=== PATIENT | male | born 1955 | race American Indian/Alaskan Native ===

== ENCOUNTER 2017-01-25 18:53 | Inpatient (IN) ==
[2017-01-25] MEDS ORDERED: ONDANSETRON 4 MG/2 ML VIAL IV STA (19:23)
[2017-01-25] MEDS ORDERED: PANTOPRAZOLE 40 MG VIAL IV STA (19:23)
[2017-01-25] MEDS ORDERED: ALUM/MAG/SIMETH/LIDO VISC 1:1 30 ML BOTTLE PO STA (19:23)
--- NOTE | 2017-01-25 19:25 | Emergency Department Note ---
Richie Fallon Brittany, am scribing for, and in the presence of, Bogdan Echols MD 19:25. Kinza Fallon Charles R, MD, personally performed the services described in this documentation, ascribed by Gissel Quiroz in my presence, and it is both accurate and complete . Arrival - Arrival Chief Complaint: Abdominal / Flank Pain Stated Complaint: abd distention ED Nursing Triage Note: Pt arrives via ems from home with complaints of abd distention and pain that started today. PT is scheduled to have hepatic shunt placed with Dr. Abdi whenever he gets ready (per patient). He also is shceduled to have dialysis shunt placed with Dr. Aguero soon. Pt states that he was having more abd distention and decreased appetite today and decided to come on in. Describes pressure to right side of abd. Last normal bm today prior to arrival. Mode of Arrival: Stretcher Limitations: No Limitations Source: Patient, RN Notes Reviewed - History of Present Illness HPI Narrative: Patient is a 61 y/o [place] male presenting to the ED via EMS with c/o abdominal pain that began earlier today. Patient describes this pain as a pressure, most severe in the RUQ. He reports having some associated abdominal distention, nausea, vomiting, and shortness of breath. 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 Patient reports that he is to have a Hepatic Shunt placed per Dr. Abdi and is to have a Dialysis Shunt placed per Dr. Aguero soon. He denies having started Dialysis yet. He states that he has not been told of what has contributed to his Renal Failure. Patient states that he has been told that he has Gallbladder problems in the past. PMHx of HTN, IDDM, TIA, CVA, and Barnett's Palsy. Patient does not verbalize any further complaints. Onset (ago): hour(s) Consistency: constant Allergies/Adverse Reactions: Allergies Allergy/AdvReac Type Severity Reaction Status Date / Time hydrocodone Allergy HIVES Verified 09/30/15 14:52 Sulfa (Sulfonamide Allergy HIVES Verified 09/30/15 14:52 Antibiotics) Home Medications: Home Medications Medication Instructions Recorded Confirmed Type Aspirin/Caffeine [Aliyah Back & 1 each PO BID 12/18/16 12/18/16 History Body Caplet] Metoprolol Succinate 100 mg PO BID 12/18/16 12/18/16 History Furosemide Tab [Lasix Tab] 240 mg PO BID DIURETIC #180 tablet 12/28/16 Rx Sodium Bicarb Tab 1,300 mg PO TID #180 tablet 12/28/16 Rx amLODIPine [Norvasc] 5 mg PO DAILY #30 tablet 12/28/16 Rx hydrALAZINE TAB [Apresoline Tab] 50 mg PO QID #120 tablet 12/28/16 Rx metOLazone [Metolazone] 10 mg PO DAILY #30 tablet 12/28/16 Rx Review of System - Review of System 12 point system: reviewed and no additional remarkable complaints except as stated - Review of System Constitutional: Absent: chills, fever Respiratory: Present: respiratory distress Cardiovascular: Absent: chest pain Gastrointestinal: Present: abdominal pain, nausea, vomiting, other (decrease in appetite, abdominal distention, abdominal pressure) Genitourinary male: Absent: urgency, dysuria, frequency Medical,Surgical,& Family Hx - Medical History Cardio: History of: Hypertension (Says he has had for the last 5 years) Neurology: History of: Cerebrovascular Accident (2015 & 2013), TIA (2013) HEENT: History of: Eye Problem (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) Endocrine: History of: Diabetes Mellitus (IDDM), Diabetes Mellitus (NIDDM) Respiratory: No history of: Asthma, COPD Renal: No history of: Renal Failure Gastrointestinal: History of: Hepatitis (Had in his teenage years) - Surgical History Thoracic Surgeries: Patient denies;: Organ Transplant, Lobectomy HEENT Surgeries: Surgical HX of: Tonsilectomy & Adenoidectomy (In the s) Abdominal Surgeries: Surgical HX of: Colonoscopy (In 2009) Reproductive Surgeries: Patient denies;: Vasectomy Orthopedic Surgeries: Surgical HX of;: Orthopedic Surgery (b/l knee surgery in the s) - Family History Family History: Reports;: Family Diabetes (Brothers), Family Hypertension ( Brothers) Denies;: Family Anesthesia Reaction, Family Cancer, Family Heart Disease, Family Psychiatric Problems, Family Stroke - Social History Smoking Status: Former smoker Frequency of Alcohol Use: None Type of Drug Use: None Exam Vital Signs: Vital Signs Temperature 97.6 F 01/25/17 18:53 Pulse Rate 66 01/25/17 18:53 Respiratory Rate 20 01/25/17 18:53 Blood Pressure 121/65 01/25/17 18:53 O2 Sat by Pulse Oximetry 99 01/25/17 18:53 - General General appearance: alert, in no apparent distress, other (Stron uremic smell) - Head Head exam: Present: atraumatic, normocephalic - Eye Eye exam: Present: PERRL, EOMI - ENT ENT exam: Present: normal oropharynx, mucous membranes moist - Neck Neck exam: Present: normal inspection, full ROM, trachea midline - Chest Chest inspection: Present: normal inspection, symmetric chest wall rise - Respiratory Respiratory exam: Present: rales (Bilateral rales). Absent: normal lung sounds bilaterally - Cardiovascular Cardiovascular exam: Present: regular rate, normal rhythm, normal heart sounds - Abdominal Exam Abdominal exam: Present: soft, tenderness (RUQ tenderness to direct palpation, diffuse abdominal tenderness), hypoactive bowel sounds. Absent: guarding, rebound, normal bowel sounds - Extremities Exam Extremities exam: Present: normal capillary refill, pedal edema (+1 edema to bilateral lower extremities). Absent: calf tenderness - Back Exam Back exam: Present: normal inspection - Neurological Exam Neurological exam: Present: alert, oriented X3, CN II-XII intact. Absent: motor sensory deficit - Psychiatric Psychiatric exam: Present: normal affect, normal mood - Skin Skin exam: Present: warm, dry, intact, normal color Course - Consultations Consultation #1: Hospitalist will admit patient Time: 22:21 Results - Labs CBC & BMP: 01/25/17 19:19 01/25/17 19:19 Lab Results: I have reviewed the patients labs Labs: Laboratory Tests 01/25/17 19:19 WBC 6.6 RBC 3.09 L Hgb 9.6 L Hct 27.9 L Plt Count 399 Neut % (Auto) 75.7 H Lymph % (Auto) 15.5 L Baso % (Auto) 1.2 H Lymph # (Auto) 1.0 L Laboratory Tests 01/25/17 19:19 Lactic Acid < 0.3 L Laboratory Tests 01/25/17 19:19 Sodium 138 Potassium 3.4 L Chloride 90 L Carbon Dioxide 28 Anion Gap 23.4 H BUN 190 H Creatinine 14.70 H Glucose 143 H Calculated Osmolality 339.7 H Calcium 5.3 L* Magnesium 2.6 H ALT 13 L Troponin I < 0.015 Total Protein 6.3 L Albumin 2.8 L Albumin/Globulin Ratio 0.8 L Laboratory Tests 01/25/17 20:54 Urine Color Yellow Urine Appearance Cloudy Urine pH 5.0 Ur Specific Op[place]ke 1.009 Urine Protein 100 Urine Glucose (UA) Negative Urine Ketones Negative Urine Blood Small Urine Nitrate Negative Urine Bilirubin Negative Urine Urobilinogen < 2.0 H Urine Leukocytes Large H Urine RBC 14 Urine WBC 291 Urine WBC Clumps Moderate Urine Bacteria Many Urine Mucus Occasional Laboratory Tests 01/25/17 19:19 B-Natriuretic Peptide 922 H - Diagnostic Findings Procedure: Abdominal x-ray: report reviewed by me (Calcification over the right renal outline, could indicate nephrolithiasis.), Chest x-ray: report reviewed by me (Stable cardiomegaly. Interval improvement in the right base, but pleural thickening and mild atelectasis or scarring remains.) Disposition Clinical Impression: Abdominal pain, Lower extremity edema, Acute on chronic renal failure, UTI ( urinary tract infection), Biliary colic, Pleural effusion, Hypocalcemia, Anemia of chronic disease, CHF (congestive heart failure) Case discussed with: patient Disposition: Still a Patient Condition: Stable Time of Disposition: 22:22
[2017-01-25 19:46] LABS: Basophils # 0.1 10*3/uL (0.0-0.2); Basophils % 1.2 % (0.0-0.8); Eosinophils # 0.1 10*3/uL (0.0-0.87); Eosinophils % 1.4 % (0.00-10.9); Hematocrit 27.9 VOL% (42.0-52.0); Hemoglobin 9.6 GM/DL (14.0-18.0); Immature Granulocytes % 0.9 %; Immature Granulocytes Absolute 0.06 #; Lymphocytes % 15.5 % (21.2-54.2); Mean Corpuscular HGB Conc 34.4 GM/DL (32-36); Mean Corpuscular Hemoglobin 31 PG (27-34); Mean Corpuscular Volume 90.3 FL (87-102); Monocytes # 0.4 10*3/uL (0.11-0.8); Monocytes % 5.3 % (1.7-12.7); Neutrophils % 75.7 % (38.7-73.9); Platelet Count 399 T/CUMM (130-400); Red Blood Count 3.09 MC/CUMM (3.8-5.5); Red Cell Distribution Width 12.5 % (9.3-17.3); White Blood Count 6.6 T/CUMM (4-12)
--- NOTE | 2017-01-25 20:01 | EKG Report ---
Stationary ECG Study [facility] ER Test Date: 01/25/2017 8:00:38 PM Pat Name: CIARA REYES Department: Room: 426 Gender: M Delivery Man: : 1955 Requested by: Bogdan Hobson Order Number: [id number] Jonah MD: SANTI HARRIS Intervals Isabella Rate: 61 P: 81 OH: 168 QRS: -10 QRSD: 131 T: 154 QT: 460 QTc: 462 Interpretive Statements SINUS RHYTHM INTRAVENTRICULAR CONDUCTION DELAY Electronically Signed On 01-26-17 11:20:55 CDT by SANTI HARRIS [email or web address]
--- NOTE | 2017-01-25 20:03 | XRay Report ---
Portable chest. Indication: Generalized and upper abdominal pain. Comparison: December 20, 2016. The heart is enlarged with left ventricular hypertrophy. The pulmonary vasculature is normal. There is a calcified granuloma in the left upper lung field. The left lung is otherwise clear. There is interval improvement in the appearance of the right lung. Mild scarring or atelectasis persists laterally, and there is persistent pleural thickening. Impression: Stable cardiomegaly. Interval improvement in the right base, but pleural thickening and mild atelectasis or scarring remains. PROCEDURE INTERPRETED AT [facility] DEPARTMENT OF RADIOLOGY Final Report Signed by: Dr. Jessica Morin
--- NOTE | 2017-01-25 20:04 | XRay Report ---
Abdomen flat and erect. Indication: Generalized abdominal pain. Comparison: December 30, 2007. The heart is enlarged. No enlargement of the liver or spleen is seen. There is a 2 mm calcification projecting over the midpole of the right kidney. Mild vascular calcifications within the pelvis. Very little bowel gas, but the pattern is within the range of normal. No free air. Impression: Calcification over the right renal outline, could indicate nephrolithiasis. PROCEDURE INTERPRETED AT [facility] DEPARTMENT OF RADIOLOGY Final Report Signed by: Dr. Jessica Morin
[2017-01-25 20:06] LABS: Lactic Acid < 0.3 MMOL/L (0.4-2.0)
[2017-01-25 20:17] LABS: Alanine Aminotransferase 13 U/L (16-61); Albumin 2.8 G/DL (3.4-5.0); Alkaline Phosphatase 75 U/L (45-117); Amylase 60 U/L (25-115); Aspartate Amino Transferase 13 U/L (0-37); Blood Urea Nitrogen 190 MG/DL (7-18); Glucose 143 MG/DL (74-106); Magnesium 2.6 MG/DL (1.8-2.4); Osmolality,Calculated 339.7 MOS/KG (273-304); Potassium 3.4 MMOL/L (3.5-5.1); Sodium 138 MMOL/L (136-145); Total Protein 6.3 G/DL (6.4-8.3); Troponin I Only < 0.015 NG/ML (0.00-0.045)
[2017-01-25] MEDS ORDERED: PANTOPRAZOLE 40 MG VIAL IV ONE (20:19)
[2017-01-25] MEDS ORDERED: ALUM/MAG/SIMETH/LIDO VISC 1:1 30 ML BOTTLE PO ONE (20:19)
[2017-01-25] MEDS ORDERED: ONDANSETRON 4 MG/2 ML VIAL ONE (20:19)
[2017-01-25 20:26] LABS: Calcium 5.3 MG/DL (8.5-10.1)
[2017-01-25 21:05] LABS: Apearance,Urine CLOUDY (Clear); Bacteria,Urine Many /HPF (Few); Bilirubin,Urine Negative (Negative); Blood, Urine Small mg/dL (Negative); Glucose,Urine (UA) Negative (Negative); Ketones,Urine Negative (Negative); Mucus,Urine Occasional /LPF (Occasional); Nitrite,Urine Negative (Negative); Protein,Urine 100 MG/DL; RBC,Urine 14 /HPF (0-4); Urine Color Yellow (Yellow); Urine Specific Gravity 1.009 (1.001-1.035); Urine Urobilinogen < 2.0 EU/DL (0.2-1.0); WBC,Urine 291 /HPF (0-6)
[2017-01-25] MEDS ORDERED: CALCIUM GLUCONATE 1,000 MG in SODIUM CHLORIDE 0.9% 100 ML IV ONE (21:05)
[2017-01-25] MEDS ORDERED: cefTRIAXone 1,000 MG in SODIUM CHLORIDE 0.9% 100 ML IV STA (21:36)
[2017-01-25] MEDS ORDERED: SODIUM CHLORIDE 0.9% 100 ML IV ONE (21:48)
[2017-01-25] MEDS ORDERED: cefTRIAXone 1,000 MG VIAL ONE (21:48)
--- NOTE | 2017-01-25 23:36 | Hospitalist History & Physical ---
Assessment and Plan (1) Uremia Status: Acute Assessment and plan: The patient presents to the hospital with acute on chronic uremia secondary to chronic kidney disease stage V. The patient will be admitted to the hospital and will continue his usual home regimen. His blood pressure is better controlled than usual. 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 Current Visit: Yes (2) CKD (chronic kidney disease) stage 5, GFR less than 15 ml/min Status: Acute Current Visit: Yes (3) Acute on chronic renal failure Status: Acute Current Visit: Yes History of Present Illness Chief complaint: Nausea and abdominal discomfort History of present illness: Mr. Swanson is a 61 year old male with history of end-stage renal disease. The patient was recently discharged from hospital in mid December with stage V chronic renal failure. The patient was set up for access placement with Dr. Augero. The patient now presents to the hospital with worsening nausea and abdominal discomfort with weakness. The patient denies fever, chills, angina, palpitations. The patient has mild shortness of breath. The patient's symptoms are moderate, continuous, and worsening. The patient's symptoms prevent him from eating appropriate amounts of food. The patient feels the need to void but has small urine output. A complete 10 system review is obtained all systems not mentioned in history of present illness were negative. Home Medications Medication Instructions Recorded Confirmed Type Aspirin/Caffeine [Aliyah Back & 1 each PO BID 12/18/16 12/18/16 History Body Caplet] Metoprolol Succinate 100 mg PO BID 12/18/16 12/18/16 History Furosemide Tab [Lasix Tab] 240 mg PO BID DIURETIC #180 tablet 12/28/16 Rx Sodium Bicarb Tab 1,300 mg PO TID #180 tablet 12/28/16 Rx amLODIPine [Norvasc] 5 mg PO DAILY #30 tablet 12/28/16 Rx hydrALAZINE TAB [Apresoline Tab] 50 mg PO QID #120 tablet 12/28/16 Rx metOLazone [Metolazone] 10 mg PO DAILY #30 tablet 12/28/16 Rx Allergies Allergy/AdvReac Type Severity Reaction Status Date / Time hydrocodone Allergy HIVES Verified 09/30/15 14:52 Sulfa (Sulfonamide Allergy HIVES Verified 09/30/15 14:52 Antibiotics) Medical,Surgical,& Family Hx - Medical History Cardio: History of: Hypertension (Says he has had for the last 5 years) Neurology: History of: Cerebrovascular Accident (2015 & 2013), TIA (2013) HEENT: History of: Eye Problem (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) Endocrine: History of: Diabetes Mellitus (IDDM), Diabetes Mellitus (NIDDM) Respiratory: No history of: Asthma, COPD Renal: No history of: Renal Failure Gastrointestinal: History of: Hepatitis (Had in his teenage years) - Surgical History Thoracic Surgeries: Patient denies;: Organ Transplant, Lobectomy HEENT Surgeries: Surgical HX of: Tonsilectomy & Adenoidectomy (In the s) Abdominal Surgeries: Surgical HX of: Colonoscopy (In 2009) Reproductive Surgeries: Patient denies;: Vasectomy Orthopedic Surgeries: Surgical HX of;: Orthopedic Surgery (b/l knee surgery in the ) - Family History Family History: Reports;: Family Diabetes (Brothers), Family Hypertension ( Brothers) Denies;: Family Anesthesia Reaction, Family Cancer, Family Heart Disease, Family Psychiatric Problems, Family Stroke - Social History Smoking Status: Former smoker Frequency of Alcohol Use: None Type of Drug Use: None 12 point system: reviewed and no additional remarkable complaints except as stated Exam - Constitutional Vitals: Period Temp Pulse Resp BP Sys/Canales Pulse Ox Last 24 Hr 97.6 F-97.6 F 66-66 20-20 121-121/65-65 99 Exam: Constitutional System: Mild distress. No tremulousness. Patient nauseated Head: Normocephalic, atraumatic. Ears, Nose and Throat System: No evidence of Otitis or Mastoiditis. No epistaxis or discharge Eyes System: Pupils equal, round, and reactive. Extraocular muscles intact. Neck: Supple, without adenopathy, No jugular venous distention. No thyromegaly , neck mass, or prior surgery apparent. Respiratory System: Chest clear to auscultation. Cardiovascular System: Heart with regular rate and rhythm. No murmur. GI System: Abdomen soft, nontender. Hypo-active bowel sounds present. Musculoskeletal System: limbs with 1+ pedal edema. Full distal pulses. Neurological System: No discernable sensory deficit. No aphasia Psychiatric System: Conversation is confused Results - Labs CBC & BMP: 01/25/17 19:19 01/25/17 19:19 Lab Results: I have reviewed the past 24 hour labs
[2017-01-25] MEDS ORDERED: ONDANSETRON 4 MG/2 ML VIAL IV PRN (23:40)
[2017-01-25] MEDS ORDERED: traMADol 50 MG TABLET PO PRN (23:42)
[2017-01-26 06:27] LABS: Basophils # 0.1 10*3/uL (0.0-0.2); Basophils % 0.6 % (0.0-0.8); Eosinophils # 0.2 10*3/uL (0.0-0.87); Hematocrit 28.3 VOL% (42.0-52.0); Hemoglobin 9.6 GM/DL (14.0-18.0); Immature Granulocytes Absolute 0.09 #; Mean Corpuscular HGB Conc 33.9 GM/DL (32-36); Mean Corpuscular Hemoglobin 31 PG (27-34); Mean Corpuscular Volume 89.8 FL (87-102); Mean Platelet Volume 11.3 FL (9.6-12.0); Monocytes # 0.9 10*3/uL (0.11-0.8); Monocytes % 9.8 % (1.7-12.7); Neutrophils # 6.4 10*3/uL (1.4-7.4); Neutrophils % 74.6 % (38.7-73.9); Platelet Count 400 T/CUMM (130-400); Red Blood Count 3.15 MC/CUMM (3.8-5.5); Red Cell Distribution Width 12.5 % (9.3-17.3); White Blood Count 8.6 T/CUMM (4-12)
[2017-01-26 06:57] LABS: Magnesium 2.6 MG/DL (1.8-2.4); Osmolality,Calculated 341.4 MOS/KG (273-304); Potassium 3.3 MMOL/L (3.5-5.1); Troponin I Only 0.016 NG/ML (0.00-0.045)
[2017-01-26 07:06] LABS: Calcium 5.6 MG/DL (8.5-10.1)
--- NOTE | 2017-01-26 07:56 | Ultrasound Report ---
Gallbladder ultrasound. Indication: Right upper quadrant pain. No prior studies. There is a preliminary report from [facility]. The liver is normal in size and parenchymal echogenicity. No focal liver lesions are identified. There is no intrahepatic biliary ductal dilatation. The gallbladder is distended. There is borderline gallbladder wall thickening at 3 mm. Multiple polyps are seen within the gallbladder the largest of which measures 5 mm. A single gallstone is noted. The common duct measures 4 mm. There is a 5 x 8 mm cyst at the neck of the pancreas. The pancreas is otherwise unremarkable. The right kidney has a normal appearance. Incidental note is made of a right-sided pleural effusion. Impression: 1. Cholelithiasis, gallbladder distention, and borderline gallbladder wall thickening indicating the possibility of cholecystitis. There are also multiple gallbladder polyps present, which are 5 mm or less in size. 2. Small simple appearing cyst within the pancreas. Attention on follow-up recommended. 3. Right pleural effusion. The Ultrasound images were captured and stored. PROCEDURE INTERPRETED AT [facility] DEPARTMENT OF RADIOLOGY Final Report Signed by: Dr. Jessica Morin
[2017-01-26] MEDS ORDERED: FUROSEMIDE 80 MG TABLET PO SCH (08:00)
--- NOTE | 2017-01-26 08:37 | Nephrology Consult Note ---
History of Present Illness Chief complaint: uremia History of present illness: Mr. Swanson is a 61 year old male known to me with symptomatic uremia we have discussed in clinic the fact that he needed to start dialysis and he had been delaying it. He presented with increased sleepiness and nausea and vomiting. His BUNs 188 creatinines 14 potassium 3.3. He has been diuresed out of his anasarca does state but at this point needs to begin dialysis. He has 1+ peripheral edema clear chest and her heart without rub or gallop. He is also been found to have asymptomatic cholelithiasis confirmed by ultrasound. His chest x-ray demonstrates no evidence of volume overload. Impression symptomatic uremia #2 asymptomatic cholelithiasis Plan we have asked to see the patient and he will place a tunneled dialysis catheter will begin dialysis. This was discussed with the patient he understands and agrees Home Medications Medication Instructions Recorded Confirmed Type Aspirin/Caffeine [Aliyah Back & 1 each PO BID 12/18/16 01/26/17 History Body Caplet] Metoprolol Succinate 100 mg PO BID 12/18/16 01/26/17 History Furosemide Tab [Lasix Tab] 240 mg PO BID DIURETIC #180 tablet 12/28/16 01/26/17 Rx amLODIPine [Norvasc] 5 mg PO DAILY #30 tablet 12/28/16 01/26/17 Rx hydrALAZINE TAB [Apresoline Tab] 50 mg PO QID #120 tablet 12/28/16 Rx metOLazone [Metolazone] 10 mg PO DAILY #30 tablet 12/28/16 01/26/17 Rx Allergies Allergy/AdvReac Type Severity Reaction Status Date / Time hydrocodone Allergy HIVES Verified 09/30/15 14:52 Sulfa (Sulfonamide Allergy HIVES Verified 09/30/15 14:52 Antibiotics) Medical,Surgical,& Family Hx - Medical History Cardio: History of: Hypertension (Says he has had for the last 5 years) Neurology: History of: Cerebrovascular Accident (2015 & 2013), TIA (2013) HEENT: History of: Eye Problem (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) Endocrine: History of: Diabetes Mellitus (IDDM), Diabetes Mellitus (NIDDM) Respiratory: No history of: Asthma, COPD Renal: No history of: Renal Failure Gastrointestinal: History of: Hepatitis (Had in his teenage years) Hematology: History of: Anemia - Surgical History Thoracic Surgeries: Patient denies;: Organ Transplant, Lobectomy HEENT Surgeries: Surgical HX of: Tonsilectomy & Adenoidectomy (In the s) Abdominal Surgeries: Surgical HX of: Colonoscopy (In 2009) Reproductive Surgeries: Patient denies;: Vasectomy Orthopedic Surgeries: Surgical HX of;: Orthopedic Surgery (b/l knee surgery in the ) - Family History Family History: Reports;: Family Diabetes (Brothers), Family Hypertension ( Brothers) Denies;: Family Anesthesia Reaction, Family Cancer, Family Heart Disease, Family Psychiatric Problems, Family Stroke - Social History Smoking Status: Former smoker Frequency of Alcohol Use: None Type of Drug Use: None Exam - Vital Signs Vital signs: Period Temp Pulse Resp BP Sys/Canales Pulse Ox Last 24 Hr 97.5 F-98.3 F 66-73 18-20 121-171/65-84 95-99 Results - Labs CBC & BMP: 01/26/17 05:11 01/26/17 05:11
[2017-01-26] MEDS ORDERED: HEPARIN 5,000 UNIT/1 ML VIAL ONE (08:45)
[2017-01-26] MEDS ORDERED: TISSUE ADHESIVE 1 EACH APPLICATOR TOP ONE (08:45)
[2017-01-26] MEDS: METOPROLOL SUCCINATE XL 100 MG TABLET PO SCH ×2 (08:55→20:50)
[2017-01-26] MEDS: PANTOPRAZOLE 40 MG TABLET PO SCH (08:59)
[2017-01-26] MEDS: ENOXAPARIN 30 MG/0.3 ML SYRINGE SUBCUT SCH (08:59)
[2017-01-26] MEDS: amLODIPine 5 MG TABLET PO SCH (08:59)
[2017-01-26] MEDS: metOLazone 5 MG TABLET PO SCH (08:59)
[2017-01-26] MEDS ORDERED: metOLazone 5 MG TABLET PO SCH (09:00)
[2017-01-26] MEDS ORDERED: SODIUM BICARBONATE 650 MG TABLET PO SCH (09:00)
[2017-01-26] MEDS ORDERED: CLINDAMYCIN INJ 900 MG in PREMIX 1 EACH IV ONE ×2 (09:33→11:30)
--- NOTE | 2017-01-26 09:50 | General Surgery Consult Note ---
Assessment and Plan (1) Uremia Status: Acute Assessment and plan: This patient is admitted with chronic renal failure with need for hemodialysis initiation. I have been consulted for dialysis catheter placement. I have discussed this procedure with the patient in detail in the past at a prior admission when he refused catheter placement. He is aware of the risks, benefits, and alternatives, and the expected outcomes. He is wondering a little bit about fistula creation but I told him that right now we just need to get a catheter in so that he can dialyze and become more medically stable prior to fistula. He understands this and would like to proceed. We will schedule surgery for later today. Current Visit: Yes History of Present Illness Chief complaint: Uremia with nausea and History of present illness: Mr. Swanson is a 61 year old male who is admitted with uremic symptoms and need for dialysis initiation. I have seen him in the office and he has refused fistula creation in the past. Home Medications Medication Instructions Recorded Confirmed Type Aspirin/Caffeine [Aliyah Back & 1 each PO BID 12/18/16 01/26/17 History Body Caplet] Metoprolol Succinate 100 mg PO BID 12/18/16 01/26/17 History Furosemide Tab [Lasix Tab] 240 mg PO BID DIURETIC #180 tablet 12/28/16 01/26/17 Rx amLODIPine [Norvasc] 5 mg PO DAILY #30 tablet 12/28/16 01/26/17 Rx hydrALAZINE TAB [Apresoline Tab] 50 mg PO QID #120 tablet 12/28/16 Rx metOLazone [Metolazone] 10 mg PO DAILY #30 tablet 12/28/16 01/26/17 Rx Allergies Allergy/AdvReac Type Severity Reaction Status Date / Time hydrocodone Allergy HIVES Verified 09/30/15 14:52 Sulfa (Sulfonamide Allergy HIVES Verified 09/30/15 14:52 Antibiotics) Medical,Surgical,& Family Hx - Medical History Cardio: History of: Hypertension (Says he has had for the last 5 years) Neurology: History of: Cerebrovascular Accident (2015 & 2013), TIA (2013) HEENT: History of: Eye Problem (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) Endocrine: History of: Diabetes Mellitus (IDDM), Diabetes Mellitus (NIDDM) Respiratory: No history of: Asthma, COPD Renal: No history of: Renal Failure Gastrointestinal: History of: Hepatitis (Had in his teenage years) Hematology: History of: Anemia - Surgical History Thoracic Surgeries: Patient denies;: Organ Transplant, Lobectomy HEENT Surgeries: Surgical HX of: Tonsilectomy & Adenoidectomy (In the s) Abdominal Surgeries: Surgical HX of: Colonoscopy (In 2009) Reproductive Surgeries: Patient denies;: Vasectomy Orthopedic Surgeries: Surgical HX of;: Orthopedic Surgery (b/l knee surgery in the ) - Family History Family History: Reports;: Family Diabetes (Brothers), Family Hypertension ( Brothers) Denies;: Family Anesthesia Reaction, Family Cancer, Family Heart Disease, Family Psychiatric Problems, Family Stroke - Social History Smoking Status: Former smoker Frequency of Alcohol Use: None Type of Drug Use: None - Constitutional Constitutional: Present: as per HPI - EENT Nose, mouth and throat: Present: as per HPI - Cardiovascular Cardiovascular: Present: as per HPI - Respiratory Respiratory: Present: as per HPI - Gastrointestinal Gastrointestinal: Present: as per HPI - Genitourinary Genitourinary: Present: as per HPI - Musculoskeletal Musculoskeletal: Present: as per HPI - Neurological Neurological: Present: as per HPI - Endocrine Endocrine: Present: as per HPI Hematologic/Lymphatic: Present: as per HPI Exam - Constitutional Vitals: Period Temp Pulse Resp BP Sys/Canales Pulse Ox Last 24 Hr 97.5 F-98.3 F 65-73 18-20 121-171/65-84 95-99 General appearance: no acute distress, over weight - Head Head exam: Present: normal inspection - Eye Eye exam: Present: EOMI - ENT ENT exam: Present: normal exam Mouth exam: Present: normal external inspection, normal voice - Neck Neck exam: Present: normal inspection, trachea midline - Respiratory Respiratory exam: Absent: accessory muscle use, chest wall tenderness - Cardiovascular Cardiovascular exam: Absent: tachycardia - GI/Abdominal GI/Abdominal exam: Absent: distended - Extremities Exam Extremities exam: Present: normal inspection - Neurological Exam Neurological exam: Present: alert Speech: Present: normal - Skin Skin exam: Present: normal color, warm Results - Labs CBC & BMP: 01/26/17 05:11 01/26/17 05:11
[2017-01-26] MEDS: ASPIRIN PO SCH (10:52)
[2017-01-26] MEDS: CAFFEINE PO SCH (10:52)
[2017-01-26] MEDS ORDERED: KETOROLAC 30 MG/1 ML VIAL ONE (11:40)
[2017-01-26] MEDS ORDERED: PROPOFOL 200 MG/20 ML VIAL IV ONE (11:40)
[2017-01-26] MEDS ORDERED: LIDOCAINE 2% 5 ML VIAL ONE (11:40)
[2017-01-26] MEDS ORDERED: PHENYLEPHRINE 1 MG/10 ML SYRINGE IV ONE (11:40)
[2017-01-26] MEDS ORDERED: ONDANSETRON 4 MG/2 ML VIAL ONE (11:40)
[2017-01-26] MEDS ORDERED: DEXAMETHASONE 10 MG/1 ML VIAL ONE (11:40)
--- NOTE | 2017-01-26 12:17 | Operative Note ---
Date of procedure: 01/26/17 Pre-op diagnosis: Renal failure with need for hemodialysis access Post-op diagnosis: same Procedure: Preoperative diagnosis Renal failure with need for hemodialysis access Postoperative diagnosis Same Procedures performed 1. Right internal jugular vein tunneled hemodialysis catheter placement 2. Ultrasound guidance and interpretation of images 3. Fluoroscopic guidance and interpretation of images Findings The right internal jugular vein is compressible and it was accessed for hemodialysis access. The tip of the catheter was place in the right atrium. Patient tolerated procedure well and both ports worked well. Complications none apparent Specimen None Indications Renal failure with need for access for hemodialysis Description of procedure The patient was taken to the operating room and transferred to the operating table in the supine position. Pressure points are padded and SCDs placed lower extremity. Monitored anesthesia was administered and the neck was prepped and draped sterile fashion using chloride same. Preoperative antibiotics were administered and a timeout was performed. Ultrasound was used to identify the internal jugular vein and local anesthetic was infiltrated around the vein. Local anesthetic was also administered around the planned tract site down to the anterior chest wall below the clavicle. The vein was accessed on first stick and nonpulsatile venous blood was obtained. A wire was placed using Seldinger technique. An incision was made alongside the wire using a long blade scalpel and a separate incision below the clavicle was made with an 11 blade scalpel. A 19 cm catheter was tunneled from the chest incision into the neck wound and a dilator peel-away sheath was placed over the wire. The wire and dilator was removed and the catheter was placed to the peel-away sheath. The catheter was secured in place in the right atrium on fluoroscopic images. Both returned blood easily and were flushed with heparin. The catheter was secured in place using 3-0 nylon sutures and the neck incision was closed with 3 -0 nylon suture. Sterile dressings were applied. The patient was awakened from anesthesia and transferred to recovery. Postoperative plan Begin hemodialysis and obtained chest x-ray postop Implants: 19 cm tunneled dialysis catheter Anesthesia: MAC, local Surgeon / Physician: Tommie Aguero Estimated blood loss: minimal Specimens: none sent Condition: stable Disposition: PACU Results - Labs CBC & BMP: 01/26/17 05:11 01/26/17 05:11 Discharge Plan - Discharge Medications No Action Aspirin/Caffeine [Aliyah Back & Body Caplet] 1 each PO BID amLODIPine [Norvasc] 5 mg PO DAILY #30 tablet hydrALAZINE TAB [Apresoline Tab] 50 mg PO QID #120 tablet metOLazone [Metolazone] 10 mg PO DAILY #30 tablet Metoprolol Succinate 100 mg PO BID Furosemide Tab [Lasix Tab] 240 mg PO BID DIURETIC #180 tablet - Follow Up or Referral - Forms/Instructions
--- NOTE | 2017-01-26 12:30 | Anesthesia Post-Op ---
Anesthesia Post OP - Post Ansesthetic Evaluation Patient seen in post op: Yes Resp: within normal limits CV: within normal limits Mental: within normal limits Temp: within normal limits [id number]: within normal limits Nausea and Vomiting: within normal limits Pain: within normal limits
[2017-01-26] MEDS ORDERED: MIDAZOLAM 2 MG/2 ML VIAL ONE (12:44)
[2017-01-26] MEDS ORDERED: fentaNYL 100 MCG/2 ML VIAL ONE (12:44)
[2017-01-26] MEDS ORDERED: SEVOFLURANE 1 UNIT/15 MINUTE INH ONE (12:44)
--- NOTE | 2017-01-26 12:52 | Interventional Radiology Rpt ---
Intraoperative fluoroscopy was provided for the primary service during CV catheter placement. Fluoroscopy time, 9.8 seconds. Two digital images were obtained with a dual-lumen catheter placement and are presumed to serve the clinical purposes. PROCEDURE INTERPRETED AT [facility] DEPARTMENT OF RADIOLOGY Final Report Signed by: Dr. Jessica Morin
--- NOTE | 2017-01-26 13:17 | Dialysis Note ---
Dialysis Note - Dialysis Note Mr. Swanson is seen during his first hemodialysis he is doing well and his catheter is working well. There is no bleeding from the exit site. Will only dialyze about 2 hours today so as not to cause disequilibrium. His next dialysis will be Saturday.
[2017-01-26 13:30] LABS: Hepatitis A Ab IgM Quant 0.16 Index; Hepatitis A Ab IgM Result Negative (Negative); Hepatitis B Core IgM Quant 0.13 Index; Hepatitis B Core IgM Result Negative (Negative); Hepatitis B Surface Ag Quant 0.18 Index; Hepatitis B Surface Ag Result Negative (Negative); Hepatitis C Virus Ab Quant 0.05 Index; Hepatitis C Virus Ab Result Negative (Negative)
[2017-01-26] MEDS ORDERED: HEPARIN 10,000 UNIT/10 ML VIAL IV PRN (13:32)
--- NOTE | 2017-01-26 13:38 | XRay Report ---
Portable chest portable chest. Indication: Dialysis catheter placement. The heart is enlarged. The distal tip of the dual-lumen catheter is at the junction of the SVC and right atrium. The pulmonary vasculature is normal. Hypoaeration changes have developed at each lung base. No pneumothorax. Stable pleural effusion. Impression: Satisfactory line placement. Development of basilar hypoaeration. PROCEDURE INTERPRETED AT [facility] DEPARTMENT OF RADIOLOGY Final Report Signed by: Dr. Jessica Morin
[2017-01-26] MEDS: CALCIUM CARBONATE CHEW 500 MG TABLET PO SCH ×2 (16:19→20:50)
[2017-01-26] MEDS: FUROSEMIDE 80 MG TABLET PO SCH (16:19)
--- NOTE | 2017-01-26 18:51 | Hospitalist Progress Note ---
Hospitalist: Subjective Interval history: Patient admitted with uremia. He underwent right IJ and dialysis today. I went to see him twice earlier today but he was out. He is back in his room, and he states that he feels better. He denies any abdominal pain, n/v,SOB or CP. He has been eating well and without any problems. He is happy that he feels better. Exam - Constitutional Vitals: Period Temp Pulse Resp BP Sys/Canales Pulse Ox Last 24 Hr 97.5 F-98.3 F 56-73 16-20 102-175/52-92 93-100 General appearance: no acute distress - Head Head exam: Present: normal inspection - Eye Eye exam: Present: EOMI Pupils: Present: LEIDA - ENT ENT exam: Present: normal oropharynx - Neck Neck exam: Present: other (Right IJ in place without any tenderness or discharge ) - Respiratory Respiratory exam: Present: clear to auscultation bilaterally. Absent: rales, rhonchi, wheezes - Cardiovascular Cardiovascular exam: Present: regular rate and rhythm - GI/Abdominal GI/Abdominal exam: Present: normal bowel sounds, soft. Absent: distended, tenderness - Extremities Exam Extremities exam: Absent: edema - Neurological Exam Neurological exam: Present: alert, oriented X3 - Psychiatric Psychiatric exam: Present: normal affect, normal mood Results - Labs CBC & BMP: 01/26/17 05:11 01/26/17 05:11 - Impressions Active Issues: 1. Uremia, resolved 2. ESRD, on HD 3. h/o HTN: blood pressure elevated even after HD; will monitor but may need increase in norvasc 4. h/o DM: sugars controlled 5. hypocalcemia, corrected 6.6 6. h/o CVA 7. Anemia, HCT stable Plan: continue current care; monitor bp and treat accordingly; correct calcium; monitor electrolytes; add ISS; check iron stores The plan of care may be modified as more information becomes available.
[2017-01-26] MEDS ORDERED: CALCIUM GLUCONATE 1,000 MG in SODIUM CHLORIDE 0.9% 100 ML IV ONE (18:59)
[2017-01-26] MEDS ORDERED: GLUCAGON 1 MG VIAL IM PRN (19:01)
[2017-01-26] MEDS ORDERED: DEXTROSE 50% 25 GM/50 ML SYRINGE IV PRN (19:01)
[2017-01-26] MEDS: INSULIN LISPRO 100 UNIT/ML SUBCUT SCH (21:41)
[2017-01-27 05:40] LABS: Basophils % 0.4 % (0.0-0.8); Hematocrit 31.6 VOL% (42.0-52.0); Hemoglobin 10.4 GM/DL (14.0-18.0); Immature Granulocytes % 1.2 %; Immature Granulocytes Absolute 0.06 #; Lymphocytes # 0.8 10*3/uL (1.4-4.0); Lymphocytes % 14.4 % (21.2-54.2); Mean Corpuscular HGB Conc 32.9 GM/DL (32-36); Mean Corpuscular Hemoglobin 30 PG (27-34); Mean Corpuscular Volume 91.6 FL (87-102); Monocytes # 0.2 10*3/uL (0.11-0.8); Neutrophils # 4.2 10*3/uL (1.4-7.4); Platelet Count 435 T/CUMM (130-400); Red Blood Count 3.45 MC/CUMM (3.8-5.5); Red Cell Distribution Width 12.6 % (9.3-17.3); White Blood Count 5.2 T/CUMM (4-12)
[2017-01-27] MEDS: ASPIRIN PO SCH ×3 (06:04→20:03)
[2017-01-27] MEDS: CAFFEINE PO SCH ×3 (06:04→20:03)
[2017-01-27 06:16] LABS: Albumin 2.9 G/DL (3.4-5.0); Bilirubin,Total 0.8 MG/DL (0.2-1.0); Calcium 6.9 MG/DL (8.5-10.1); Osmolality,Calculated 319.5 MOS/KG (273-304); Potassium 4.1 MMOL/L (3.5-5.1); Total Protein 6.7 G/DL (6.4-8.3)
[2017-01-27 06:21] LABS: % Iron Saturation 57.1 % (18-50); Ferritin 257.5 ng/ml (26-388)
[2017-01-27] MEDS: INSULIN LISPRO 100 UNIT/ML SUBCUT SCH ×4 (08:04→21:13)
[2017-01-27] MEDS: amLODIPine 5 MG TABLET PO SCH (09:23)
[2017-01-27] MEDS: ENOXAPARIN 30 MG/0.3 ML SYRINGE SUBCUT SCH (09:23)
[2017-01-27] MEDS: metOLazone 5 MG TABLET PO SCH (09:23)
[2017-01-27] MEDS: METOPROLOL SUCCINATE XL 100 MG TABLET PO SCH ×2 (09:23→21:14)
[2017-01-27] MEDS: CALCIUM CARBONATE CHEW 500 MG TABLET PO SCH ×3 (09:23→21:14)
[2017-01-27] MEDS: FUROSEMIDE 80 MG TABLET PO SCH ×2 (09:23→15:41)
[2017-01-27] MEDS: PANTOPRAZOLE 40 MG TABLET PO SCH (09:23)
--- NOTE | 2017-01-27 10:39 | Nephrology Progress Note ---
Nephrology - PN: Subj Interval history: Mr. Swanson is seen in follow-up of his end-stage renal disease. He tolerated yesterday's short dialysis well. His BUNs 130 and he says he feels better. He is fully awake today and his is visiting in the room. He has no edema. Will dialyze tomorrow and will begin to make arrangements for outpatient dialysis in [place] thank you Exam (PN)-Nephrology - Vital Signs Vital signs: Period Temp Pulse Resp BP Sys/Canales Pulse Ox Last 24 Hr 97.1 F-98.4 F 56-74 16-21 102-185/52-92 93-100 - Lab 01/27/17 04:32 01/27/17 04:31 Most recent lab results Calcium 6.9 MG/DL (8.5-10.1) L D 01/27/17 04:31 Magnesium 2.6 MG/DL (1.8-2.4) H 01/26/17 05:11
--- NOTE | 2017-01-27 11:36 | Nephrology Progress Note ---
Nephrology - PN: Subj Interval history: Patient is resting comfortably. He voices no complaints. Tolerated dialysis on yesterday and plan for dialysis on tomorrow. Exam (PN)-Nephrology - Vital Signs Vital signs: Period Temp Pulse Resp BP Sys/Canales Pulse Ox Last 24 Hr 97.1 F-98.4 F 56-74 16-21 102-185/52-92 93-100 - General Appearance General appearance: well-developed, well-nourished EENT: ATNC Neck: supple Respiratory: clear Cardiology: no edema, regular rate, regular rhythm Gastrointestinal: normoactive bowel sounds, no tenderness Neurologic: alert and oriented x3 Musculoskeletal: no clubbing Psychiatric: mood/affect appropriate, cooperative - Lab 01/27/17 04:32 01/27/17 04:31 Most recent lab results Calcium 6.9 MG/DL (8.5-10.1) L D 01/27/17 04:31 Magnesium 2.6 MG/DL (1.8-2.4) H 01/26/17 05:11 Assessment and Plan (1) End stage renal disease Status: Acute Current Visit: Yes (2) Hypertension Status: Chronic Current Visit: No Qualifiers: Hypertension type: essential hypertension Qualified Code(s): I10 - Essential (primary) hypertension (3) Diabetes mellitus Status: Chronic Current Visit: No Qualifiers: Diabetes mellitus type: type 2 Diabetes mellitus complication status: with hypoglycemia (4) Essential (primary) hypertension Status: Chronic Current Visit: No (5) CKD (chronic kidney disease) stage 5, GFR less than 15 ml/min Status: Chronic Assessment and plan: Patient is now end-stage renal disease. Arrangements for outpatient hemodialysis. Current Visit: Yes
[2017-01-27] MEDS ORDERED: VANCOMYCIN INJ 1,000 MG in SODIUM CHLORIDE 0.9% 250 ML IV ONE (15:04)
[2017-01-27] MEDS ORDERED: GENTAMICIN INJ 80 MG in PREMIX 1 EACH IV ONE (15:04)
[2017-01-27] MEDS ORDERED: LEVOFLOXACIN 500 MG TABLET PO ONE (15:30)
--- NOTE | 2017-01-27 16:07 | Hospitalist Progress Note ---
Assessment and Plan (1) End stage renal disease Status: Chronic Assessment and plan: Frankie arranged for outpatient hemodialysis. Current Visit: Yes (2) Hypertension Status: Chronic Current Visit: No Qualifiers: Hypertension type: essential hypertension Qualified Code(s): I10 - Essential (primary) hypertension (3) Diabetes mellitus Status: Chronic Current Visit: No Qualifiers: Diabetes mellitus type: type 2 Diabetes mellitus complication status: with hypoglycemia (4) Essential (primary) hypertension Status: Chronic Current Visit: No (5) CKD (chronic kidney disease) stage 5, GFR less than 15 ml/min Status: Chronic Assessment and plan: Patient is now end-stage renal disease. Arrangements for outpatient hemodialysis. Current Visit: Yes Hospitalist: Subjective Interval history: Patient is resting comfortably. Urine cultures positive for Klebsiella pneumonia. Patient is tolerating dialysis well yesterday scheduled for dialysis on tomorrow. We will continue to do broad-spectrum antibiotics for this patient. Exam - Constitutional Vitals: Period Temp Pulse Resp BP Sys/Canales Pulse Ox Last 24 Hr 97.1 F-98.4 F 64-82 16-22 136-185/62-92 93-98 General appearance: normal weight - Head Head exam: Present: normal inspection - Eye Eye exam: Present: EOMI - Respiratory Respiratory exam: Present: clear to auscultation bilaterally - Cardiovascular Cardiovascular exam: Present: regular rate and rhythm - GI/Abdominal GI/Abdominal exam: Present: normal bowel sounds - Extremities Exam Extremities exam: Present: normal inspection - Neurological Exam Neurological exam: Present: alert, oriented X3 Results - Labs CBC & BMP: 01/27/17 04:32 01/27/17 04:31
[2017-01-28] MEDS: INSULIN LISPRO 100 UNIT/ML SUBCUT SCH ×4 (08:27→21:05)
[2017-01-28] MEDS: ASPIRIN PO SCH ×2 (08:28→21:05)
[2017-01-28] MEDS: ENOXAPARIN 30 MG/0.3 ML SYRINGE SUBCUT SCH (08:28)
[2017-01-28] MEDS: CAFFEINE PO SCH ×2 (08:28→21:05)
[2017-01-28] MEDS: amLODIPine 5 MG TABLET PO SCH (08:28)
[2017-01-28] MEDS: PANTOPRAZOLE 40 MG TABLET PO SCH (08:28)
[2017-01-28] MEDS: METOPROLOL SUCCINATE XL 100 MG TABLET PO SCH ×2 (08:29→21:02)
[2017-01-28] MEDS: CALCIUM CARBONATE CHEW 500 MG TABLET PO SCH ×3 (08:29→21:02)
--- NOTE | 2017-01-28 08:47 | Nephrology Progress Note ---
Nephrology - PN: Subj Interval history: Mr. Swanson is seen during his hemodialysis. This is his second dialysis and will dialyze 3-1/2 hours. His weight seems appropriate. We are trying to decrease his BUN further he came in with a BUN of 188 and is feeling better and hopefully will continue to do so. Arrangements are being made for transfer to the [place] outpatient unit. Exam (PN)-Nephrology - Vital Signs Vital signs: Period Temp Pulse Resp BP Sys/Canales Pulse Ox Last 24 Hr 97.4 F-98.2 F 60-89 16-22 123-165/60-78 93-99 - Lab 01/27/17 04:32 01/27/17 04:31 Most recent lab results Calcium 6.9 MG/DL (8.5-10.1) L D 01/27/17 04:31 Magnesium 2.6 MG/DL (1.8-2.4) H 01/26/17 05:11
--- NOTE | 2017-01-28 15:57 | Hospitalist Progress Note ---
Assessment and Plan (1) End stage renal disease Status: Chronic Assessment and plan: home when outpatient HD arranged. ID- continue antibiotics per DR Garcia's plan. He had Klebsiella in urine and blood. Current Visit: Yes Hospitalist: Subjective Interval history: Mr Swanson is doing well and denies pain or shortness of breath. He will go home when outpatient dialysis is arranged on antibiotics as outlined in Dr Garcia's note yesterday. Exam - Constitutional Vitals: Period Temp Pulse Resp BP Sys/Canales Pulse Ox Last 24 Hr 97.4 F-98.5 F 60-89 18-22 123-165/60-91 94-99 General appearance: normal weight, no acute distress - Eye Eye exam: Present: EOMI. Absent: scleral icterus - Respiratory Respiratory exam: Present: clear to auscultation bilaterally - Cardiovascular Cardiovascular exam: Present: regular rate and rhythm - GI/Abdominal GI/Abdominal exam: Present: normal bowel sounds, soft - Extremities Exam Extremities exam: Absent: edema Results - Labs CBC & BMP: 01/27/17 04:32 01/27/17 04:31 Lab Results: I have reviewed the past 24 hour labs
[2017-01-29 08:08] VITALS: BP 108/54
--- NOTE | 2017-01-29 09:33 | Discharge Summary ---
<Antonella Henriquez - Last Filed: 01/29/17 09:46> Hospital Course - Hospital Course Hospital Course: 61-year-old male with history of end-stage renal disease and hypertension admitted by the hospitalist on 01/25/2017 with acute on chronic uremia secondary to chronic kidney disease stage V. Patient had been recently discharged in mid December with stage V chronic renal failure and was set up for access placement with Dr. Aguero. Dr. Aguero placed a right tunneled hemodialysis catheter on 01/26. He will need follow-up with him in clinic for permanent access placement. Dr. Scott from nephrology has also been following the patient as well. Arrangements have been made for the [place] outpatient dialysis unit. Patient was also found to have UTI with Klebsiella in the urine and blood. He will be discharged home on Levaquin 250 mg every 48 hours per nephrology. Complete discharge instructions were given. Care coordination, chart review, and completed discharge paperwork took approximately 40 minutes. - Time spent with patient Time with patient DS: Greater than 30 minutes Diagnosis - Discharge Diagnosis (1) Hypertension Status: Chronic (2) Acute on chronic renal failure Status: Resolved (3) UTI (urinary tract infection) Status: Resolved (4) CKD (chronic kidney disease) stage 5, GFR less than 15 ml/min Status: Chronic (5) Uremia Status: Resolved Specialty Discharge - Follow Up or Referrals Follow up with: Catalino Loza MD [Primary Care Provider] - 1 Week Tommie Aguero MD [Physician] - 02/18/17 2:00 pm (With vein mapping for access placement WILL BE ON AT 1:15 PM) Reji Scott MD [Physician] - Discharge Plan - Discharge Data Disposition: Disch To Home/Self Care Contact your physician if you experience:: fever over 101, Shortness of breath - Discharge Medications New Levofloxacin Tab [Levaquin Tab] 250 mg PO Q48H #10 tablet Calcium Carbonate Chew [Tums] 2 tablet PO TID tablet Continue Aspirin/Caffeine [Aliyah Back & Body Caplet] 1 each PO BID amLODIPine [Norvasc] 5 mg PO DAILY #30 tablet hydrALAZINE TAB [Apresoline Tab] 50 mg PO QID #120 tablet Metoprolol Succinate 100 mg PO BID Discontinued metOLazone [Metolazone] 10 mg PO DAILY #30 tablet Furosemide Tab [Lasix Tab] 240 mg PO BID DIURETIC #180 tablet - Follow Up or Referral Follow Up: Catalino Loza MD [Primary Care Provider] - 1 Week Tommie Aguero MD [Physician] - 02/18/17 2:00 pm (With vein mapping for access placement WILL BE ON AT 1:15 PM) Reji Scott MD [Physician] - - Forms/Instructions Instructions: Richie Antibiotic Awarness, Chronic Kidney Disease (DC) Exam - Constitutional Vitals: Period Temp Pulse Resp BP Sys/Canales Pulse Ox Last 24 Hr 98.4 F-99.3 F 65-78 18-20 108-169/54-91 94-97 Exam: 61-year-old male, no acute distress, alert and oriented Chest clear CV regular rate rhythm Abdomen soft nontender Extremities no edema Discharge Results Procedures and tests throughout hospitalization: Pending Orders 01/25/17 20:41 Blood Culture Stat 01/27/17 04:32 Erythropoietin IN AM Labs on day of discharge: Labs from last 24 hours 01/29/17 01/28/17 01/28/17 07:14 18:33 15:52 POC Glucose 101 190 H 180 H 01/28/17 13:50 POC Glucose 113 H Preliminary micro results at discharge 01/25/17 20:41 Blood Culture - Preliminary Blood No growth at 3 days 01/25/17 20:41 Blood Culture - Preliminary Blood Gram Positive Cocci DS: Provider Date of admission: 01/25/17 22:25 Primary care physician: Catalino Loza MD Attending physician on admission: Butch Lane MD Consults: 01/25/17 23:40 Consult to Physician [CONS] Routine Comment: uremic Consulting Provider: Reji Scott Consulting Provider Notified: Yes When should Consulting Provider be notified: Now Consult to Specialist Group: Nephrology When should Consulting Provider be notified: Now Person Notified: SEAN Date Notified: 01/28/17 Time Notified: 09:04 Consult Notification Comment: DR STRAUSS SAW PT OVER THE WEEKEND 01/26/17 09:33 Consult to Anesthesiology [CONS] Routine Consulting Provider: Reason for Anesthesiology: Pre-op Clearance 01/27/17 10:39 Consult to Case Mgmt/Social Srvs [CONS] Routine Reason for Case Mgmt/Social Srvs: Dialysis Consult Comment: Arrange admission to outpatient dialysis Discharging clinician: PATY Bush Expected date of discharge: 01/29/17 <Kamala Chinchilla - Last Filed: 01/29/17 13:50> Diagnosis - Discharge Diagnosis (1) End stage renal disease Status: Chronic (2) Bacteremia due to Klebsiella pneumoniae Status: Resolved (3) Bacteremia due to Staphylococcus epidermidis Status: Resolved Discharge Plan - Discharge Data Condition at Discharge: Stable Discharge Diet: diabetic diet, heart healthy Activity: resume usual activities as tolerated
[2017-01-29] MEDS: INSULIN LISPRO 100 UNIT/ML SUBCUT SCH ×2 (10:47→14:26)
--- NOTE | 2017-01-29 12:19 | Dialysis Note ---
Dialysis Note - Dialysis Note Mr. Swanson is seen during his hemodialysis. He is tolerating it well and his catheter is working well. He feels better and is eating better without vomiting. He is anxious to go home. We told him he can resume his usual activities and he will dialyze at the [place] dialysis unit. He will follow -up with to look for fistula creation thank
[2017-01-29] MEDS: ASPIRIN PO SCH (14:26)
[2017-01-29] MEDS: CALCIUM CARBONATE CHEW 500 MG TABLET PO SCH ×2 (14:26→14:42)
[2017-01-29] MEDS: METOPROLOL SUCCINATE XL 100 MG TABLET PO SCH (14:26)
[2017-01-29] MEDS: CAFFEINE PO SCH (14:26)
[2017-01-29] MEDS: amLODIPine 5 MG TABLET PO SCH (14:42)
[2017-01-29] MEDS: PANTOPRAZOLE 40 MG TABLET PO SCH (14:42)
[2017-01-29] MEDS: ENOXAPARIN 30 MG/0.3 ML SYRINGE SUBCUT SCH (14:43)
[2017-01-29] MEDS ORDERED: LEVOFLOXACIN 250 MG TABLET PO SCH (16:00)
== END 2017-01-29 16:00 | disposition home or self-care (01) | DRG 683 ==
LOC: EDBD → EDUNIT# → N.ED 18:53 → SUATTDRO 22:25 → N.EDINP 22:25 → N.4E 23:22
PROVIDERS: ADMIT Internal Medicine; ATTEND Internal Medicine

== ENCOUNTER 2017-04-30 09:45 | Inpatient (IN) ==
[2017-04-30 10:27] LABS: Basophils # 0.1 10*3/uL (0.0-0.2); Basophils % 1.2 % (0.0-0.8); Eosinophils # 0.2 10*3/uL (0.0-0.87); Eosinophils % 2.7 % (0.00-10.9); Hematocrit 32.4 VOL% (42.0-52.0); Hemoglobin 10.4 GM/DL (14.0-18.0); Immature Granulocytes % 0.8 %; Immature Granulocytes Absolute 0.05 #; Lymphocytes # 0.8 10*3/uL (1.4-4.0); Lymphocytes % 12.3 % (21.2-54.2); Mean Corpuscular HGB Conc 32.1 GM/DL (32-36); Mean Corpuscular Hemoglobin 33 PG (27-34); Mean Corpuscular Volume 102.5 FL (87-102); Mean Platelet Volume 10.9 FL (9.6-12.0); Monocytes # 0.4 10*3/uL (0.11-0.8); Monocytes % 5.4 % (1.7-12.7); Neutrophils # 5.2 10*3/uL (1.4-7.4); Neutrophils % 77.6 % (38.7-73.9); Platelet Count 284 T/CUMM (130-400); Red Blood Count 3.16 MC/CUMM (3.8-5.5); Red Cell Distribution Width 13.5 % (9.3-17.3); White Blood Count 6.6 T/CUMM (4-12)
[2017-04-30 10:45] LABS: PT Patient Result 10.3 SECS; Partial Thromboplastin Time 27.3 SECS (0-40)
[2017-04-30 10:58] LABS: Albumin 3.5 G/DL (3.4-5.0); CKMB % 3.4 %; Calcium 8.9 MG/DL (8.5-10.1); Magnesium 4.7 MG/DL (1.8-2.4); Osmolality,Calculated 305.3 MOS/KG (273-304); Thyroid Stimulating Hormone 1.01 uIU/ml (0.358-3.74); Total Protein 6.7 G/DL (6.4-8.3); Troponin I Only 0.029 NG/ML (0.00-0.045)
[2017-04-30 11:02] LABS: Potassium 6.3 MMOL/L (3.5-5.1)
[2017-04-30] MEDS ORDERED: DEXTROSE 50% 25 GM/50 ML VIAL IV STA (11:20)
[2017-04-30] MEDS ORDERED: INSULIN REGULAR 100 UNIT/ML IV STA (11:21)
[2017-04-30] MEDS ORDERED: DEXTROSE 50% 25 GM/50 ML SYRINGE IV ONE (11:23)
[2017-04-30] MEDS ORDERED: INSULIN REGULAR 100 UNIT/ML ONE (11:26)
[2017-04-30 11:27] LABS: Barbiturates Screen,Urine Negative (Negative); Benzodiazepines Screen,Urine Negative (Negative); Cannabinoid Screen,Urine Negative (Negative); Opiate Screen,Urine Negative (Negative); Phencyclidine Screen,Urine Negative (Negative)
[2017-04-30] MEDS ORDERED: ONDANSETRON 4 MG/2 ML VIAL IV PRN (13:15)
[2017-04-30] MEDS ORDERED: ACETAMINOPHEN 325 MG TABLET PO PRN (13:15)
[2017-04-30] MEDS ORDERED: ALBUTEROL 2.5 MG/3 ML NEB RESP TX PRN (13:15)
[2017-04-30 15:19] LABS: Alanine Aminotransferase 23 U/L (16-61); Albumin 3.6 G/DL (3.4-5.0); Alkaline Phosphatase 54 U/L (45-117); Aspartate Amino Transferase 22 U/L (0-37); Bilirubin,Direct < 0.100 MG/DL (0.0-0.20); Bilirubin,Indirect 0.4 MG/DL (0.0-1.0); Total Protein 6.6 G/DL (6.4-8.3)
[2017-04-30] MEDS ORDERED: ATROPINE 1 MG/1 ML VIAL ONE (15:23)
[2017-04-30] MEDS ORDERED: DOPamine 800 MG/250 ML PREMIX IV ONE (15:32)
[2017-04-30] MEDS ORDERED: HEPARIN 10,000 UNIT/10 ML VIAL IV PRN (15:42)
[2017-04-30 16:01] LABS: Calcium 8.8 MG/DL (8.5-10.1); Magnesium 4.8 MG/DL (1.8-2.4); Osmolality,Calculated 304.4 MOS/KG (273-304)
[2017-04-30 16:04] LABS: Potassium 6.6 MMOL/L (3.5-5.1)
[2017-04-30] MEDS ORDERED: DOPamine 800 MG/250 ML PREMIX IV SCH (16:30)
[2017-04-30 18:49] LABS: Apearance,Urine CLOUDY (Clear); Bacteria,Urine Few /HPF (Few); Bilirubin,Urine Negative (Negative); Blood, Urine Moderate mg/dL (Negative); Glucose,Urine (UA) Negative (Negative); Ketones,Urine Negative (Negative); Mucus,Urine Occasional /LPF (Occasional); Nitrite,Urine Negative (Negative); Protein,Urine >=500 MG/DL; RBC,Urine 44 /HPF (0-4); Squamous Epithelial Cell,Urine Occasional /HPF (0-10); Urine Color Yellow (Yellow); Urine Specific Gravity 1.012 (1.001-1.035); Urine Urobilinogen < 2.0 EU/DL (0.2-1.0); WBC,Urine 119 /HPF (0-6)
[2017-05-01 04:37] LABS: Basophils # 0.1 10*3/uL (0.0-0.2); Basophils % 0.7 % (0.0-0.8); Eosinophils # 0.1 10*3/uL (0.0-0.87); Eosinophils % 1.9 % (0.00-10.9); Hematocrit 34.3 VOL% (42.0-52.0); Hemoglobin 11.3 GM/DL (14.0-18.0); Immature Granulocytes % 0.3 %; Immature Granulocytes Absolute 0.02 #; Lymphocytes # 1.4 10*3/uL (1.4-4.0); Lymphocytes % 18.8 % (21.2-54.2); Mean Corpuscular HGB Conc 32.9 GM/DL (32-36); Mean Corpuscular Hemoglobin 33 PG (27-34); Mean Corpuscular Volume 100.6 FL (87-102); Mean Platelet Volume 10.8 FL (9.6-12.0); Monocytes # 0.7 10*3/uL (0.11-0.8); Monocytes % 9.8 % (1.7-12.7); Neutrophils % 68.5 % (38.7-73.9); Platelet Count 263 T/CUMM (130-400); Red Blood Count 3.41 MC/CUMM (3.8-5.5); Red Cell Distribution Width 13.5 % (9.3-17.3); White Blood Count 7.3 T/CUMM (4-12)
[2017-05-01 04:51] LABS: PT Patient Result 10.3 SECS
[2017-05-01 05:05] LABS: Calcium 7.9 MG/DL (8.5-10.1); Magnesium 3.4 MG/DL (1.8-2.4); Osmolality,Calculated 286.5 MOS/KG (273-304); Potassium 4.8 MMOL/L (3.5-5.1); Risk Ratio 2.66; VLDL CHOLESTEROL 26.4 MG/DL
[2017-05-01] MEDS ORDERED: HYDROCORTISONE 1% CREAM 28 GM TUBE TOP PRN (14:22)
[2017-05-01] MEDS: CALCIUM CARBONATE CHEW 500 MG TABLET PO SCH ×2 (15:04→21:33)
[2017-05-02 05:47] LABS: Basophils # 0.1 10*3/uL (0.0-0.2); Basophils % 0.8 % (0.0-0.8); Eosinophils # 0.3 10*3/uL (0.0-0.87); Eosinophils % 4.6 % (0.00-10.9); Hematocrit 33.1 VOL% (42.0-52.0); Hemoglobin 11.1 GM/DL (14.0-18.0); Immature Granulocytes % 0.3 %; Immature Granulocytes Absolute 0.02 #; Lymphocytes # 1.4 10*3/uL (1.4-4.0); Lymphocytes % 21.5 % (21.2-54.2); Mean Corpuscular HGB Conc 33.5 GM/DL (32-36); Mean Corpuscular Hemoglobin 33 PG (27-34); Mean Corpuscular Volume 99.4 FL (87-102); Mean Platelet Volume 10.9 FL (9.6-12.0); Monocytes # 0.7 10*3/uL (0.11-0.8); Monocytes % 10.6 % (1.7-12.7); Neutrophils % 62.2 % (38.7-73.9); Platelet Count 271 T/CUMM (130-400); Red Blood Count 3.33 MC/CUMM (3.8-5.5); Red Cell Distribution Width 13.1 % (9.3-17.3); White Blood Count 6.5 T/CUMM (4-12)
[2017-05-02 06:27] LABS: Calcium 8.7 MG/DL (8.5-10.1); Osmolality,Calculated 294.8 MOS/KG (273-304); Potassium 5.4 MMOL/L (3.5-5.1)
[2017-05-02] MEDS ORDERED: amLODIPine 5 MG TABLET PO SCH (09:00)
[2017-05-02] MEDS: CALCIUM CARBONATE CHEW 500 MG TABLET PO SCH ×2 (09:33→15:09)
[2017-05-02 12:14] VITALS: BP 154/81
== END 2017-05-02 15:19 | disposition home or self-care (01) | DRG 640 ==
LOC: EDBD → EDUNIT# → N.ED 09:45 → N.EDINP 12:53 → N.ICU 15:08 → N.TELEN 05-02 06:18

== ENCOUNTER 2017-05-17 21:06 | Inpatient (IN) ==
[2017-05-17] MEDS ORDERED: ONDANSETRON 4 MG/2 ML VIAL IV STA (21:37)
[2017-05-17] MEDS ORDERED: PANTOPRAZOLE 40 MG VIAL IV STA (21:37)
[2017-05-17] MEDS ORDERED: MORPHINE 2 MG/1 ML SYRINGE IV STA (21:37)
[2017-05-17] MEDS ORDERED: ONDANSETRON 4 MG/2 ML VIAL ONE (22:30)
[2017-05-17] MEDS ORDERED: PANTOPRAZOLE 40 MG VIAL IV ONE (22:30)
[2017-05-17] MEDS ORDERED: MORPHINE 2 MG/1 ML SYRINGE ONE (22:30)
[2017-05-17 22:37] LABS: Basophils # 0.1 10*3/uL (0.0-0.2); Basophils % 0.4 % (0.0-0.8); Eosinophils % 0.1 % (0.00-10.9); Hematocrit 32.4 VOL% (42.0-52.0); Hemoglobin 10.5 GM/DL (14.0-18.0); Immature Granulocytes % 0.7 %; Immature Granulocytes Absolute 0.14 #; Lymphocytes # 1.1 10*3/uL (1.4-4.0); Lymphocytes % 5.6 % (21.2-54.2); Mean Corpuscular HGB Conc 32.4 GM/DL (32-36); Mean Corpuscular Hemoglobin 33 PG (27-34); Mean Corpuscular Volume 102.5 FL (87-102); Mean Platelet Volume 9.7 FL (9.6-12.0); Monocytes # 1.9 10*3/uL (0.11-0.8); Monocytes % 9.6 % (1.7-12.7); Neutrophils # 16.6 10*3/uL (1.4-7.4); Neutrophils % 83.6 % (38.7-73.9); Platelet Count 359 T/CUMM (130-400); Red Blood Count 3.16 MC/CUMM (3.8-5.5); Red Cell Distribution Width 13.5 % (9.3-17.3); White Blood Count 19.9 T/CUMM (4-12)
[2017-05-17 22:53] LABS: Lactic Acid 0.6 MMOL/L (0.4-2.0)
[2017-05-17 23:02] LABS: Albumin 3.3 G/DL (3.4-5.0); Bilirubin,Total 0.5 MG/DL (0.2-1.0); Calcium 8.5 MG/DL (8.5-10.1); Magnesium 2.4 MG/DL (1.8-2.4); Osmolality,Calculated 287.7 MOS/KG (273-304); Potassium 5.2 MMOL/L (3.5-5.1); Total Protein 6.7 G/DL (6.4-8.3); Troponin I Only 0.019 NG/ML (0.00-0.045)
[2017-05-17] MEDS ORDERED: cefTRIAXone 1,000 MG in SODIUM CHLORIDE 0.9% 100 ML IV STA (23:45)
[2017-05-18] MEDS ORDERED: cefTRIAXone 1,000 MG VIAL ONE (00:09)
[2017-05-18] MEDS ORDERED: DEXTROSE 50% 25 GM/50 ML VIAL IV PRN (01:08)
[2017-05-18] MEDS ORDERED: ONDANSETRON 4 MG/2 ML VIAL IV PRN (01:08)
[2017-05-18] MEDS ORDERED: SODIUM CHLORIDE 0.9% 1,000 ML IV SCH (01:08)
[2017-05-18] MEDS ORDERED: ALBUTEROL/IPRATROPIUM 3 ML NEB RESP TX PRN (01:08)
[2017-05-18] MEDS ORDERED: GLUCAGON 1 MG VIAL IM PRN (01:08)
[2017-05-18 04:53] LABS: Basophils # 0.1 10*3/uL (0.0-0.2); Basophils % 0.4 % (0.0-0.8); Eosinophils % 0.1 % (0.00-10.9); Hematocrit 31.1 VOL% (42.0-52.0); Hemoglobin 10.1 GM/DL (14.0-18.0); Immature Granulocytes Absolute 0.19 #; Lymphocytes # 1.4 10*3/uL (1.4-4.0); Lymphocytes % 6.8 % (21.2-54.2); Mean Corpuscular HGB Conc 32.5 GM/DL (32-36); Mean Corpuscular Hemoglobin 33 PG (27-34); Mean Platelet Volume 10.2 FL (9.6-12.0); Monocytes # 1.9 10*3/uL (0.11-0.8); Monocytes % 9.5 % (1.7-12.7); Neutrophils # 16.5 10*3/uL (1.4-7.4); Neutrophils % 82.2 % (38.7-73.9); Platelet Count 333 T/CUMM (130-400); Red Blood Count 3.05 MC/CUMM (3.8-5.5); Red Cell Distribution Width 13.8 % (9.3-17.3)
[2017-05-18] MEDS: MORPHINE 2 MG/1 ML SYRINGE IV PRN ×3 (04:55→22:25)
[2017-05-18] MEDS ORDERED: VANCOMYCIN INJ 1,000 MG in SODIUM CHLORIDE 0.9% 250 ML IV ONE (05:00)
[2017-05-18] MEDS ORDERED: PIPERACILLIN/TAZOBACTAM 2,250 MG in SODIUM CHLORIDE 0.9% 100 ML IV SCH (05:00)
[2017-05-18 05:25] LABS: Albumin 3.1 G/DL (3.4-5.0); Bilirubin,Total 0.7 MG/DL (0.2-1.0); Calcium 8.4 MG/DL (8.5-10.1); Magnesium 2.5 MG/DL (1.8-2.4); Osmolality,Calculated 284.8 MOS/KG (273-304); Potassium 5.3 MMOL/L (3.5-5.1); Risk Ratio 2.48; Total Protein 6.5 G/DL (6.4-8.3)
[2017-05-18] MEDS: PIPERACILLIN/TAZOBACTAM 3.375 MG in SODIUM CHLORIDE 0.9% 100 ML IV SCH ×2 (06:39→17:41)
[2017-05-18] MEDS: INSULIN REGULAR 100 UNIT/ML SUBCUT SCH ×4 (07:33→21:16)
[2017-05-18] MEDS ORDERED: CALCIUM CARBONATE CHEW 500 MG TABLET PO SCH (09:00)
[2017-05-18] MEDS: METOPROLOL TARTRATE 100 MG TABLET PO SCH ×2 (09:58→20:37)
[2017-05-18] MEDS: PANTOPRAZOLE 40 MG TABLET PO SCH (09:58)
[2017-05-18] MEDS: CALCIUM CARBONATE CHEW 500 MG TABLET PO SCH ×3 (09:58→20:37)
[2017-05-18] MEDS: amLODIPine 5 MG TABLET PO SCH (09:58)
[2017-05-18] MEDS ORDERED: cefTRIAXone 1,000 MG in SYRINGE 1 EACH IV SCH (20:00)
[2017-05-19 03:04] LABS: Basophils # 0.1 10*3/uL (0.0-0.2); Basophils % 0.4 % (0.0-0.8); Eosinophils # 0.1 10*3/uL (0.0-0.87); Eosinophils % 0.6 % (0.00-10.9); Hematocrit 32.3 VOL% (42.0-52.0); Hemoglobin 10.4 GM/DL (14.0-18.0); Immature Granulocytes % 1.5 %; Lymphocytes # 1.9 10*3/uL (1.4-4.0); Lymphocytes % 9.7 % (21.2-54.2); Mean Corpuscular HGB Conc 32.2 GM/DL (32-36); Mean Corpuscular Hemoglobin 33 PG (27-34); Mean Corpuscular Volume 101.9 FL (87-102); Mean Platelet Volume 9.9 FL (9.6-12.0); Monocytes % 10.4 % (1.7-12.7); Neutrophils # 15.2 10*3/uL (1.4-7.4); Neutrophils % 77.4 % (38.7-73.9); Platelet Count 335 T/CUMM (130-400); Red Blood Count 3.17 MC/CUMM (3.8-5.5); Red Cell Distribution Width 13.9 % (9.3-17.3); White Blood Count 19.6 T/CUMM (4-12)
[2017-05-19 03:32] LABS: Albumin 2.7 G/DL (3.4-5.0); Bilirubin,Total 0.8 MG/DL (0.2-1.0); Calcium 8.5 MG/DL (8.5-10.1); Osmolality,Calculated 279.1 MOS/KG (273-304); Total Protein 6.6 G/DL (6.4-8.3)
[2017-05-19 03:33] LABS: Potassium 6.1 MMOL/L (3.5-5.1)
[2017-05-19] MEDS ORDERED: SODIUM POLYSTYRENE SULFATE 15 GM/60 ML BOTTLE PO ONE (04:00)
[2017-05-19] MEDS: PIPERACILLIN/TAZOBACTAM 3.375 MG in SODIUM CHLORIDE 0.9% 100 ML IV SCH (05:26)
[2017-05-19] MEDS: MORPHINE 2 MG/1 ML SYRINGE IV PRN (05:27)
[2017-05-19] MEDS: INSULIN REGULAR 100 UNIT/ML SUBCUT SCH ×2 (07:32→12:35)
[2017-05-19] MEDS: PANTOPRAZOLE 40 MG TABLET PO SCH (09:15)
[2017-05-19] MEDS: METOPROLOL TARTRATE 100 MG TABLET PO SCH (09:15)
[2017-05-19] MEDS: amLODIPine 5 MG TABLET PO SCH (09:15)
[2017-05-19] MEDS: CALCIUM CARBONATE CHEW 500 MG TABLET PO SCH (09:15)
[2017-05-19 13:00] VITALS: BP 120/59
[2017-05-20] MEDS ORDERED: ASPIRIN EC 81 MG TABLET PO SCH (09:00)
== END 2017-05-19 15:34 | disposition home or self-care (01) | DRG 871 ==
LOC: EDBD → EDUNIT# → N.ED 21:06 → N.EDINP 05-18 00:07 → N.2E 05-18 00:44
PROVIDERS: ADMIT Family Medicine; ATTEND Family Medicine

== ENCOUNTER 2017-06-05 21:57 | Inpatient (IN) ==
[2017-06-05] MEDS ORDERED: ALBUTEROL NEB SOLN 5 MG/ML 20 ML/BOTTLE CONT NEB STA (22:37)
[2017-06-05] MEDS ORDERED: CALCIUM CHLORIDE 1,000 MG/10 ML SYRINGE IV STA (22:37)
[2017-06-05] MEDS ORDERED: METOCLOPRAMIDE 10 MG/2 ML VIAL IV STA (22:38)
[2017-06-05] MEDS ORDERED: ONDANSETRON 4 MG/2 ML VIAL IV STA (22:38)
[2017-06-05] MEDS ORDERED: ONDANSETRON 4 MG/2 ML VIAL ONE (23:12)
[2017-06-05] MEDS ORDERED: METOCLOPRAMIDE 10 MG/2 ML VIAL ONE (23:12)
[2017-06-05] MEDS ORDERED: CALCIUM CHLORIDE 1,000 MG/10 ML SYRINGE IV ONE (23:12)
[2017-06-05] MEDS ORDERED: ONDANSETRON 4 MG/2 ML VIAL IV PRN (23:16)
[2017-06-05] MEDS ORDERED: CALCIUM CARBONATE CHEW 500 MG TABLET PO PRN (23:21)
[2017-06-05 23:38] LABS: Lactic Acid 0.4 MMOL/L (0.4-2.0)
[2017-06-06 00:34] LABS: Calcium 9.4 MG/DL (8.5-10.1); Osmolality,Calculated 292.5 MOS/KG (273-304); Potassium 5.2 MMOL/L (3.5-5.1)
[2017-06-06 00:59] LABS: Alanine Aminotransferase 17 U/L (16-61); Albumin 3.2 G/DL (3.4-5.0); Alkaline Phosphatase 71 U/L (45-117); Aspartate Amino Transferase 15 U/L (0-37); Bilirubin,Direct < 0.100 MG/DL (0.0-0.20); Bilirubin,Indirect 0.4 MG/DL (0.0-1.0); Total Protein 7.3 G/DL (6.4-8.3)
[2017-06-06 05:37] LABS: Basophils # 0.1 10*3/uL (0.0-0.2); Basophils % 1.1 % (0.0-0.8); Eosinophils # 0.1 10*3/uL (0.0-0.87); Eosinophils % 1.6 % (0.00-10.9); Hemoglobin 10.2 GM/DL (14.0-18.0); Immature Granulocytes % 0.3 %; Immature Granulocytes Absolute 0.02 #; Lymphocytes # 1.2 10*3/uL (1.4-4.0); Lymphocytes % 18.6 % (21.2-54.2); Mean Corpuscular HGB Conc 32.9 GM/DL (32-36); Mean Corpuscular Hemoglobin 33 PG (27-34); Mean Corpuscular Volume 101.6 FL (87-102); Mean Platelet Volume 9.8 FL (9.6-12.0); Monocytes # 0.7 10*3/uL (0.11-0.8); Monocytes % 10.7 % (1.7-12.7); Neutrophils # 4.3 10*3/uL (1.4-7.4); Neutrophils % 67.7 % (38.7-73.9); Platelet Count 501 T/CUMM (130-400); Red Blood Count 3.05 MC/CUMM (3.8-5.5); Red Cell Distribution Width 15.8 % (9.3-17.3); White Blood Count 6.3 T/CUMM (4-12)
[2017-06-06 06:10] LABS: Albumin 3.2 G/DL (3.4-5.0); Total Protein 6.8 G/DL (6.4-8.3)
[2017-06-06 06:11] LABS: Osmolality,Calculated 297.3 MOS/KG (273-304); Risk Ratio 3.31; VLDL CHOLESTEROL 23.8 MG/DL
[2017-06-06 06:22] LABS: Potassium 6.2 MMOL/L (3.5-5.1)
[2017-06-06] MEDS: MORPHINE 2 MG/1 ML SYRINGE IV PRN (08:30)
[2017-06-06] MEDS: PANTOPRAZOLE 40 MG VIAL IV SCH (08:30)
[2017-06-06] MEDS: amLODIPine 5 MG TABLET PO SCH (08:31)
[2017-06-06] MEDS ORDERED: SODIUM POLYSTYRENE SULFATE 15 GM/60 ML BOTTLE PO STA (16:50)
[2017-06-07] MEDS: SODIUM CHLORIDE 0.45% 1,000 ML IV SCH ×2 (03:30→20:18)
[2017-06-07] MEDS ORDERED: SODIUM POLYSTYRENE SULFATE 15 GM/60 ML BOTTLE PO ONE (04:00)
[2017-06-07 06:47] LABS: Basophils # 0.1 10*3/uL (0.0-0.2); Basophils % 1.7 % (0.0-0.8); Eosinophils # 0.2 10*3/uL (0.0-0.87); Eosinophils % 3.1 % (0.00-10.9); Hematocrit 29.7 VOL% (42.0-52.0); Hemoglobin 9.8 GM/DL (14.0-18.0); Immature Granulocytes % 0.4 %; Immature Granulocytes Absolute 0.02 #; Lymphocytes % 20.8 % (21.2-54.2); Mean Corpuscular Hemoglobin 34 PG (27-34); Mean Corpuscular Volume 102.8 FL (87-102); Mean Platelet Volume 9.8 FL (9.6-12.0); Monocytes # 0.6 10*3/uL (0.11-0.8); Monocytes % 12.1 % (1.7-12.7); Neutrophils % 61.9 % (38.7-73.9); Platelet Count 460 T/CUMM (130-400); Red Blood Count 2.89 MC/CUMM (3.8-5.5); Red Cell Distribution Width 15.2 % (9.3-17.3); White Blood Count 4.8 T/CUMM (4-12)
[2017-06-07] MEDS ORDERED: cefOXitin 2,000 MG in SYRINGE 1 EACH IV ONE (07:00)
[2017-06-07 08:07] LABS: Alanine Aminotransferase 16 U/L (16-61); Albumin 3.3 G/DL (3.4-5.0); Alkaline Phosphatase 58 U/L (45-117); Aspartate Amino Transferase 10 U/L (0-37); Bilirubin,Total < 0.39 MG/DL (0.2-1.0); Blood Urea Nitrogen 33 MG/DL (7-18); Calcium 8.5 MG/DL (8.5-10.1); Glucose 87 MG/DL (74-106); Sodium 136 MMOL/L (136-145); Total Protein 6.9 G/DL (6.4-8.3)
[2017-06-07] MEDS: amLODIPine 5 MG TABLET PO SCH (08:51)
[2017-06-07] MEDS: PANTOPRAZOLE 40 MG VIAL IV SCH (08:51)
[2017-06-07] MEDS: MORPHINE 2 MG/1 ML SYRINGE IV PRN ×2 (08:55→20:07)
[2017-06-08 03:16] LABS: Basophils # 0.1 10*3/uL (0.0-0.2); Basophils % 1.4 % (0.0-0.8); Eosinophils # 0.3 10*3/uL (0.0-0.87); Eosinophils % 5.8 % (0.00-10.9); Hematocrit 31.8 VOL% (42.0-52.0); Hemoglobin 10.6 GM/DL (14.0-18.0); Immature Granulocytes % 0.4 %; Immature Granulocytes Absolute 0.02 #; Lymphocytes # 1.4 10*3/uL (1.4-4.0); Lymphocytes % 27.4 % (21.2-54.2); Mean Corpuscular HGB Conc 33.3 GM/DL (32-36); Mean Corpuscular Hemoglobin 33 PG (27-34); Mean Corpuscular Volume 99.7 FL (87-102); Mean Platelet Volume 9.9 FL (9.6-12.0); Monocytes # 0.5 10*3/uL (0.11-0.8); Monocytes % 10.5 % (1.7-12.7); Neutrophils # 2.7 10*3/uL (1.4-7.4); Neutrophils % 54.5 % (38.7-73.9); Platelet Count 433 T/CUMM (130-400); Red Blood Count 3.19 MC/CUMM (3.8-5.5); Red Cell Distribution Width 14.6 % (9.3-17.3)
[2017-06-08 03:43] LABS: Albumin 3.1 G/DL (3.4-5.0); Bilirubin,Total 0.4 MG/DL (0.2-1.0); Calcium 8.5 MG/DL (8.5-10.1); Osmolality,Calculated 281.8 MOS/KG (273-304); Potassium 4.8 MMOL/L (3.5-5.1); Total Protein 6.5 G/DL (6.4-8.3)
[2017-06-08] MEDS: SODIUM CHLORIDE 0.45% 1,000 ML IV SCH (07:55)
[2017-06-08] MEDS: MORPHINE 2 MG/1 ML SYRINGE IV PRN (08:01)
[2017-06-08] MEDS: amLODIPine 5 MG TABLET PO SCH (08:02)
[2017-06-08] MEDS: PANTOPRAZOLE 40 MG VIAL IV SCH (08:02)
[2017-06-08] MEDS ORDERED: HEPARIN 10,000 UNIT/10 ML VIAL IV SCH (11:30)
[2017-06-08 12:39] VITALS: BP 135/73
== END 2017-06-08 14:30 | disposition home or self-care (01) | DRG 438 ==
LOC: EDUNIT# → N.ED 21:57 → N.EDINP 23:16 → N.2E 06-06 00:59
PROVIDERS: ADMIT Internal Medicine; ATTEND Internal Medicine

== ENCOUNTER 2017-06-14 23:11 | Inpatient (IN) ==
[2017-06-15] MEDS ORDERED: PANTOPRAZOLE 40 MG VIAL IV STA (00:25)
[2017-06-15] MEDS ORDERED: PANTOPRAZOLE 40 MG VIAL IV ONE (01:06)
[2017-06-15] MEDS ORDERED: ONDANSETRON 4 MG/2 ML VIAL IV STA (01:32)
[2017-06-15] MEDS ORDERED: HYDROmorphone 2 MG/1 ML VIAL IV STA (01:32)
[2017-06-15] MEDS ORDERED: ONDANSETRON 4 MG/2 ML VIAL ONE (01:37)
[2017-06-15] MEDS ORDERED: HYDROmorphone 2 MG/1 ML VIAL ONE (01:37)
[2017-06-15 01:43] LABS: Basophils # 0.1 10*3/uL (0.0-0.2); Basophils % 1.6 % (0.0-0.8); Eosinophils # 0.3 10*3/uL (0.0-0.87); Eosinophils % 5.2 % (0.00-10.9); Hematocrit 30.2 VOL% (42.0-52.0); Hemoglobin 9.9 GM/DL (14.0-18.0); Immature Granulocytes Absolute 0.05 #; Lymphocytes # 1.5 10*3/uL (1.4-4.0); Lymphocytes % 28.9 % (21.2-54.2); Mean Corpuscular HGB Conc 32.8 GM/DL (32-36); Mean Corpuscular Hemoglobin 34 PG (27-34); Mean Corpuscular Volume 102.4 FL (87-102); Mean Platelet Volume 10.5 FL (9.6-12.0); Monocytes # 0.6 10*3/uL (0.11-0.8); Monocytes % 11.1 % (1.7-12.7); Neutrophils # 2.7 10*3/uL (1.4-7.4); Neutrophils % 52.2 % (38.7-73.9); Platelet Count 357 T/CUMM (130-400); Red Blood Count 2.95 MC/CUMM (3.8-5.5); Red Cell Distribution Width 14.5 % (9.3-17.3); White Blood Count 5.2 T/CUMM (4-12)
[2017-06-15 01:52] LABS: Alanine Aminotransferase 18 U/L (16-61); Albumin 3.2 G/DL (3.4-5.0); Alkaline Phosphatase 69 U/L (45-117); Aspartate Amino Transferase 16 U/L (0-37); Bilirubin,Total < 0.39 MG/DL (0.2-1.0); Blood Urea Nitrogen 54 MG/DL (7-18); Calcium 7.9 MG/DL (8.5-10.1); Glucose 95 MG/DL (74-106); Osmolality,Calculated 295.3 MOS/KG (273-304); Potassium 5.3 MMOL/L (3.5-5.1); Sodium 141 MMOL/L (136-145); Total Protein 6.6 G/DL (6.4-8.3); Troponin I Only 0.022 NG/ML (0.00-0.045)
[2017-06-15] MEDS ORDERED: ONDANSETRON 4 MG/2 ML VIAL IV PRN (05:06)
[2017-06-15] MEDS ORDERED: CALCIUM CARBONATE CHEW 500 MG TABLET PO PRN (05:12)
[2017-06-15] MEDS: CLARITHROMYCIN 500 MG TABLET PO SCH ×2 (10:44→22:17)
[2017-06-15] MEDS: ASPIRIN EC 81 MG TABLET PO SCH ×3 (10:44→22:17)
[2017-06-15] MEDS: AMOXICILLIN 500 MG CAPSULE PO SCH ×2 (10:44→22:17)
[2017-06-15] MEDS: amLODIPine 5 MG TABLET PO SCH (10:44)
[2017-06-15] MEDS: PANTOPRAZOLE 40 MG TABLET PO SCH (10:45)
[2017-06-15] MEDS: CALCIUM (CARBONATE)/VITAMIN D 500 MG-200 UNIT TABLET PO SCH (10:45)
[2017-06-15 13:39] LABS: Hepatitis A Ab IgM Quant 0.14 Index; Hepatitis A Ab IgM Result Negative (Negative); Hepatitis B Core IgM Quant 0.17 Index; Hepatitis B Core IgM Result Negative (Negative); Hepatitis B Surface Ag Quant < 0.10 Index; Hepatitis B Surface Ag Result Negative (Negative); Hepatitis C Virus Ab Quant 0.06 Index; Hepatitis C Virus Ab Result Negative (Negative)
[2017-06-15] MEDS ORDERED: HEPARIN 10,000 UNIT/10 ML VIAL IV PRN (14:05)
[2017-06-15] MEDS: HYDROmorphone 2 MG/1 ML VIAL IV PRN (19:00)
[2017-06-16 05:17] LABS: Basophils # 0.1 10*3/uL (0.0-0.2); Basophils % 1.7 % (0.0-0.8); Eosinophils # 0.1 10*3/uL (0.0-0.87); Eosinophils % 2.7 % (0.00-10.9); Hematocrit 33.4 VOL% (42.0-52.0); Hemoglobin 10.8 GM/DL (14.0-18.0); Immature Granulocytes % 0.6 %; Immature Granulocytes Absolute 0.03 #; Lymphocytes # 0.8 10*3/uL (1.4-4.0); Lymphocytes % 17.2 % (21.2-54.2); Mean Corpuscular HGB Conc 32.3 GM/DL (32-36); Mean Corpuscular Hemoglobin 33 PG (27-34); Mean Corpuscular Volume 101.8 FL (87-102); Mean Platelet Volume 10.4 FL (9.6-12.0); Monocytes # 0.5 10*3/uL (0.11-0.8); Monocytes % 10.5 % (1.7-12.7); Neutrophils # 3.2 10*3/uL (1.4-7.4); Neutrophils % 67.3 % (38.7-73.9); Platelet Count 402 T/CUMM (130-400); Red Blood Count 3.28 MC/CUMM (3.8-5.5); Red Cell Distribution Width 14.6 % (9.3-17.3); White Blood Count 4.8 T/CUMM (4-12)
[2017-06-16 05:49] LABS: Calcium 8.9 MG/DL (8.5-10.1); Osmolality,Calculated 277.7 MOS/KG (273-304); Potassium 5.4 MMOL/L (3.5-5.1)
[2017-06-16] MEDS: AMOXICILLIN 500 MG CAPSULE PO SCH ×2 (08:51→21:04)
[2017-06-16] MEDS: ASPIRIN EC 81 MG TABLET PO SCH ×3 (08:52→21:04)
[2017-06-16] MEDS: amLODIPine 5 MG TABLET PO SCH (08:52)
[2017-06-16] MEDS: CLARITHROMYCIN 500 MG TABLET PO SCH ×2 (08:52→21:04)
[2017-06-16] MEDS: PANTOPRAZOLE 40 MG TABLET PO SCH (08:53)
[2017-06-16] MEDS: CALCIUM (CARBONATE)/VITAMIN D 500 MG-200 UNIT TABLET PO SCH (08:53)
[2017-06-16] MEDS: HYDROmorphone 2 MG/1 ML VIAL IV PRN (09:27)
[2017-06-16] MEDS: MORPHINE 2 MG/1 ML SYRINGE IV SCH ×2 (15:29→21:04)
[2017-06-17] MEDS: MORPHINE 2 MG/1 ML SYRINGE IV SCH ×3 (01:27→08:52)
[2017-06-17] MEDS: ASPIRIN EC 81 MG TABLET PO SCH ×3 (08:52→21:33)
[2017-06-17] MEDS: CALCIUM (CARBONATE)/VITAMIN D 500 MG-200 UNIT TABLET PO SCH (08:53)
[2017-06-17] MEDS: amLODIPine 5 MG TABLET PO SCH (08:53)
[2017-06-17] MEDS: PANTOPRAZOLE 40 MG TABLET PO SCH (08:53)
[2017-06-17] MEDS: CLARITHROMYCIN 500 MG TABLET PO SCH ×2 (08:53→21:34)
[2017-06-17] MEDS: AMOXICILLIN 500 MG CAPSULE PO SCH ×2 (08:53→21:33)
[2017-06-18] MEDS: amLODIPine 5 MG TABLET PO SCH (09:11)
[2017-06-18] MEDS: CLARITHROMYCIN 500 MG TABLET PO SCH (09:11)
[2017-06-18] MEDS: CALCIUM (CARBONATE)/VITAMIN D 500 MG-200 UNIT TABLET PO SCH (09:11)
[2017-06-18] MEDS: ASPIRIN EC 81 MG TABLET PO SCH (09:11)
[2017-06-18] MEDS: AMOXICILLIN 500 MG CAPSULE PO SCH (09:11)
[2017-06-18] MEDS: PANTOPRAZOLE 40 MG TABLET PO SCH (09:11)
[2017-06-18 13:34] VITALS: BP 121/58
== END 2017-06-18 15:00 | disposition home or self-care (01) | DRG 438 ==
LOC: EDBD → EDUNIT# → N.ED 23:11 → N.EDINP 23:11 → SUATTDRO 06-15 05:00 → OBSVTOIN 06-15 05:00 → N.4E 06-15 05:47
PROVIDERS: ADMIT Hospitalist; ATTEND Internal Medicine

== ENCOUNTER 2017-06-20 19:06 | Observation (INO) ==
[2017-06-20] MEDS ORDERED: HYDROmorphone 2 MG/1 ML VIAL IV STA (20:05)
[2017-06-20] MEDS ORDERED: PANTOPRAZOLE 40 MG VIAL IV STA (20:05)
[2017-06-20] MEDS ORDERED: ALUM/MAG/SIMETH/LIDO VISC 1:1 30 ML BOTTLE PO STA (20:05)
[2017-06-20] MEDS ORDERED: ONDANSETRON 4 MG/2 ML VIAL IV STA (20:05)
[2017-06-20 20:27] LABS: Basophils # 0.1 10*3/uL (0.0-0.2); Basophils % 0.9 % (0.0-0.8); Eosinophils # 0.3 10*3/uL (0.0-0.87); Eosinophils % 5.8 % (0.00-10.9); Hematocrit 30.9 VOL% (42.0-52.0); Hemoglobin 10.5 GM/DL (14.0-18.0); Immature Granulocytes % 0.4 %; Immature Granulocytes Absolute 0.02 #; Lymphocytes # 1.7 10*3/uL (1.4-4.0); Lymphocytes % 30.8 % (21.2-54.2); Mean Corpuscular Hemoglobin 34 PG (27-34); Mean Platelet Volume 10.4 FL (9.6-12.0); Monocytes # 0.6 10*3/uL (0.11-0.8); Monocytes % 11.2 % (1.7-12.7); Neutrophils # 2.9 10*3/uL (1.4-7.4); Neutrophils % 50.9 % (38.7-73.9); Platelet Count 355 T/CUMM (130-400); Red Blood Count 3.12 MC/CUMM (3.8-5.5); White Blood Count 5.7 T/CUMM (4-12)
[2017-06-20] MEDS ORDERED: ONDANSETRON 4 MG/2 ML VIAL ONE (20:40)
[2017-06-20] MEDS ORDERED: PANTOPRAZOLE 40 MG VIAL IV ONE (20:40)
[2017-06-20] MEDS ORDERED: HYDROmorphone 2 MG/1 ML VIAL ONE (20:40)
[2017-06-20] MEDS ORDERED: ALUM/MAG/SIMETH/LIDO VISC 1:1 30 ML BOTTLE PO ONE (20:41)
[2017-06-20 21:00] LABS: Lactic Acid 0.7 MMOL/L (0.4-2.0)
[2017-06-20 21:02] LABS: Alanine Aminotransferase 22 U/L (16-61); Albumin 3.7 G/DL (3.4-5.0); Alkaline Phosphatase 65 U/L (45-117); Amylase 67 U/L (25-115); Aspartate Amino Transferase 17 U/L (0-37); Blood Urea Nitrogen 17 MG/DL (7-18); Calcium 8.7 MG/DL (8.5-10.1); Glucose 91 MG/DL (74-106); Osmolality,Calculated 274.8 MOS/KG (273-304); Potassium 4.2 MMOL/L (3.5-5.1); Sodium 137 MMOL/L (136-145); Total Protein 7.4 G/DL (6.4-8.3); Troponin I Only < 0.015 NG/ML (0.00-0.045)
[2017-06-20 21:18] LABS: Ammonia 13 UMOL/L (11-32)
[2017-06-21] MEDS ORDERED: ONDANSETRON 4 MG/2 ML VIAL IV PRN (00:06)
[2017-06-21] MEDS ORDERED: DOCUSATE SODIUM 100 MG CAPSULE PO PRN (00:06)
[2017-06-21] MEDS ORDERED: diphenhydrAMINE CAP 25 MG CAPSULE PO PRN (00:06)
[2017-06-21] MEDS ORDERED: PROMETHAZINE 25 MG/1 ML VIAL IM PRN (00:06)
[2017-06-21] MEDS ORDERED: ACETAMINOPHEN 325 MG TABLET PO PRN (00:06)
[2017-06-21] MEDS ORDERED: ASPIRIN EC 81 MG TABLET PO PRN (00:06)
[2017-06-21] MEDS ORDERED: PROMETHAZINE 25 MG TABLET PO PRN (00:06)
[2017-06-21] MEDS ORDERED: LACTULOSE 20 GM/30 ML UDCUP PO PRN (00:06)
[2017-06-21] MEDS ORDERED: INFLUENZA VIRUS VACCINE 0.5 ML SYRINGE IM ONE (00:21)
[2017-06-21] MEDS: HYDROmorphone 2 MG/1 ML VIAL IV PRN ×2 (00:40→11:01)
[2017-06-21] MEDS: SODIUM CHLORIDE 0.9% 1,000 ML IV SCH ×2 (00:40→22:35)
[2017-06-21] MEDS: CLARITHROMYCIN 500 MG TABLET PO SCH ×3 (00:40→21:19)
[2017-06-21] MEDS: AMOXICILLIN 500 MG CAPSULE PO SCH ×3 (00:44→21:19)
[2017-06-21 06:59] LABS: Basophils % 0.8 % (0.0-0.8); Eosinophils # 0.4 10*3/uL (0.0-0.87); Eosinophils % 7.2 % (0.00-10.9); Hematocrit 28.5 VOL% (42.0-52.0); Hemoglobin 9.9 GM/DL (14.0-18.0); Immature Granulocytes % 0.6 %; Immature Granulocytes Absolute 0.03 #; Lymphocytes # 1.5 10*3/uL (1.4-4.0); Mean Corpuscular HGB Conc 34.7 GM/DL (32-36); Mean Corpuscular Hemoglobin 34 PG (27-34); Mean Corpuscular Volume 98.3 FL (87-102); Mean Platelet Volume 10.2 FL (9.6-12.0); Monocytes # 0.6 10*3/uL (0.11-0.8); Neutrophils # 2.3 10*3/uL (1.4-7.4); Neutrophils % 47.4 % (38.7-73.9); Platelet Count 332 T/CUMM (130-400); White Blood Count 4.8 T/CUMM (4-12)
[2017-06-21 07:31] LABS: Albumin 3.1 G/DL (3.4-5.0); Bilirubin,Total 0.9 MG/DL (0.2-1.0); Calcium 8.2 MG/DL (8.5-10.1); Osmolality,Calculated 274.8 MOS/KG (273-304); Potassium 4.3 MMOL/L (3.5-5.1); Total Protein 6.2 G/DL (6.4-8.3)
[2017-06-21] MEDS ORDERED: BUPIVACAINE 0.25% 50 ML VIAL ONE (08:34)
[2017-06-21] MEDS ORDERED: TISSUE ADHESIVE 1 EACH APPLICATOR TOP ONE (08:34)
[2017-06-21] MEDS ORDERED: cefOXitin 2,000 MG in SYRINGE 1 EACH IV ONE (09:00)
[2017-06-21] MEDS ORDERED: NEOSTIGMINE 10 MG/10 ML VIAL ONE ×2 (09:00→10:18)
[2017-06-21] MEDS ORDERED: SEVOFLURANE 1 UNIT/15 MINUTE INH ONE (10:15)
[2017-06-21] MEDS ORDERED: PROPOFOL 200 MG/20 ML VIAL IV ONE (10:16)
[2017-06-21] MEDS ORDERED: MIDAZOLAM 2 MG/2 ML VIAL ONE (10:16)
[2017-06-21] MEDS ORDERED: fentaNYL 100 MCG/2 ML VIAL ONE (10:16)
[2017-06-21] MEDS ORDERED: ONDANSETRON 4 MG/2 ML VIAL ONE (10:17)
[2017-06-21] MEDS ORDERED: ROCURONIUM 100 MG/10 ML VIAL IV ONE (10:17)
[2017-06-21] MEDS ORDERED: GLYCOPYRROLATE 0.4 MG/2 ML VIAL ONE ×2 (10:18)
[2017-06-21] MEDS ORDERED: DEXTROSE 50% 25 GM/50 ML VIAL IV PRN (10:44)
[2017-06-21] MEDS ORDERED: GLUCAGON 1 MG VIAL IM PRN (10:44)
[2017-06-21] MEDS: PANTOPRAZOLE 40 MG TABLET PO SCH ×2 (11:00→21:20)
[2017-06-21] MEDS: amLODIPine 5 MG TABLET PO SCH (11:00)
[2017-06-21] MEDS: INSULIN REGULAR 100 UNIT/ML SUBCUT SCH ×3 (12:27→21:21)
[2017-06-22 05:41] LABS: Basophils % 0.7 % (0.0-0.8); Eosinophils # 0.3 10*3/uL (0.0-0.87); Eosinophils % 5.8 % (0.00-10.9); Hematocrit 28.9 VOL% (42.0-52.0); Hemoglobin 9.4 GM/DL (14.0-18.0); Immature Granulocytes % 0.4 %; Immature Granulocytes Absolute 0.02 #; Lymphocytes # 1.5 10*3/uL (1.4-4.0); Lymphocytes % 26.1 % (21.2-54.2); Mean Corpuscular HGB Conc 32.5 GM/DL (32-36); Mean Corpuscular Hemoglobin 33 PG (27-34); Mean Corpuscular Volume 102.1 FL (87-102); Mean Platelet Volume 10.1 FL (9.6-12.0); Monocytes # 0.7 10*3/uL (0.11-0.8); Monocytes % 12.6 % (1.7-12.7); Neutrophils # 3.1 10*3/uL (1.4-7.4); Neutrophils % 54.4 % (38.7-73.9); Platelet Count 285 T/CUMM (130-400); Red Blood Count 2.83 MC/CUMM (3.8-5.5); Red Cell Distribution Width 13.6 % (9.3-17.3); White Blood Count 5.7 T/CUMM (4-12)
[2017-06-22 06:24] LABS: Calcium 8.2 MG/DL (8.5-10.1); Osmolality,Calculated 279.8 MOS/KG (273-304); Potassium 4.8 MMOL/L (3.5-5.1)
[2017-06-22] MEDS: AMOXICILLIN 500 MG CAPSULE PO SCH (09:43)
[2017-06-22] MEDS: PANTOPRAZOLE 40 MG TABLET PO SCH (09:43)
[2017-06-22] MEDS: CLARITHROMYCIN 500 MG TABLET PO SCH (09:43)
[2017-06-22] MEDS: amLODIPine 5 MG TABLET PO SCH (09:43)
[2017-06-22] MEDS: INSULIN REGULAR 100 UNIT/ML SUBCUT SCH ×2 (09:44→12:48)
[2017-06-22] MEDS ORDERED: HEPARIN 10,000 UNIT/10 ML VIAL IV SCH (10:30)
[2017-06-22 11:36] VITALS: BP 131/65
== END 2017-06-22 15:24 | disposition home or self-care (01) ==
LOC: EDUNIT# → N.EDINP 19:06 → N.ED 19:06 → SUATTDRO 22:39 → N.2E 23:37
PROVIDERS: ADMIT Family Medicine; ATTEND Family Medicine
PROC: LAPCHOL (2017-06-21 08:53)

== ENCOUNTER 2017-06-25 02:45 | Inpatient (IN) ==
[2017-06-25 03:26] LABS: Basophils % 0.5 % (0.0-0.8); Eosinophils # 0.4 10*3/uL (0.0-0.87); Eosinophils % 5.1 % (0.00-10.9); Hematocrit 28.2 VOL% (42.0-52.0); Hemoglobin 9.3 GM/DL (14.0-18.0); Immature Granulocytes % 0.3 %; Immature Granulocytes Absolute 0.03 #; Lymphocytes # 0.7 10*3/uL (1.4-4.0); Mean Corpuscular Hemoglobin 33 PG (27-34); Mean Corpuscular Volume 101.1 FL (87-102); Mean Platelet Volume 10.2 FL (9.6-12.0); Monocytes # 0.8 10*3/uL (0.11-0.8); Monocytes % 8.6 % (1.7-12.7); Neutrophils # 6.8 10*3/uL (1.4-7.4); Neutrophils % 77.5 % (38.7-73.9); Platelet Count 303 T/CUMM (130-400); Red Blood Count 2.79 MC/CUMM (3.8-5.5); Red Cell Distribution Width 14.5 % (9.3-17.3); White Blood Count 8.7 T/CUMM (4-12)
[2017-06-25 03:36] LABS: PT Patient Result 10.5 SECS; Partial Thromboplastin Time 28.1 SECS (0-40)
[2017-06-25 03:53] LABS: Albumin 3.2 G/DL (3.4-5.0); Bilirubin,Total 0.4 MG/DL (0.2-1.0); Calcium 8.4 MG/DL (8.5-10.1); Osmolality,Calculated 293.4 MOS/KG (273-304); Potassium 5.3 MMOL/L (3.5-5.1); Total Protein 6.6 G/DL (6.4-8.3)
[2017-06-25] MEDS ORDERED: LABETALOL 20 MG/4 ML SYRINGE IV PRN (05:09)
[2017-06-25] MEDS ORDERED: CALCIUM CARBONATE CHEW 500 MG TABLET PO PRN (05:13)
[2017-06-25] MEDS ORDERED: ACETAMINOPHEN 325 MG TABLET PO PRN (05:13)
[2017-06-25 07:23] LABS: Risk Ratio 2.42; VLDL CHOLESTEROL 25.6 MG/DL
[2017-06-25] MEDS ORDERED: CLARITHROMYCIN 500 MG TABLET PO SCH (09:00)
[2017-06-25] MEDS: AMOXICILLIN 500 MG CAPSULE PO SCH ×2 (10:18→22:29)
[2017-06-25] MEDS: PANTOPRAZOLE 40 MG TABLET PO SCH ×2 (10:18→22:29)
[2017-06-25] MEDS: ASPIRIN 325 MG TABLET PO SCH (10:18)
[2017-06-25] MEDS: ENOXAPARIN 30 MG/0.3 ML SYRINGE SUBCUT SCH (10:19)
[2017-06-25] MEDS ORDERED: HEPARIN 10,000 UNIT/10 ML VIAL IV PRN (13:18)
[2017-06-25] MEDS: SIMVASTATIN 40 MG TABLET PO SCH (22:29)
[2017-06-26 06:31] LABS: Basophils % 0.5 % (0.0-0.8); Eosinophils # 0.5 10*3/uL (0.0-0.87); Eosinophils % 9.6 % (0.00-10.9); Hematocrit 27.5 VOL% (42.0-52.0); Hemoglobin 9.4 GM/DL (14.0-18.0); Immature Granulocytes % 0.5 %; Immature Granulocytes Absolute 0.03 #; Lymphocytes # 1.1 10*3/uL (1.4-4.0); Lymphocytes % 20.4 % (21.2-54.2); Mean Corpuscular HGB Conc 34.2 GM/DL (32-36); Mean Corpuscular Hemoglobin 34 PG (27-34); Mean Corpuscular Volume 98.2 FL (87-102); Mean Platelet Volume 10.1 FL (9.6-12.0); Monocytes # 0.6 10*3/uL (0.11-0.8); Monocytes % 10.5 % (1.7-12.7); Neutrophils # 3.2 10*3/uL (1.4-7.4); Neutrophils % 58.5 % (38.7-73.9); Platelet Count 320 T/CUMM (130-400); White Blood Count 5.5 T/CUMM (4-12)
[2017-06-26] MEDS ORDERED: LORazepam 1 MG TABLET PO PRN (06:46)
[2017-06-26 07:11] LABS: Calcium 8.7 MG/DL (8.5-10.1); Osmolality,Calculated 275.8 MOS/KG (273-304); Potassium 5.1 MMOL/L (3.5-5.1)
[2017-06-26] MEDS: PANTOPRAZOLE 40 MG TABLET PO SCH ×2 (09:53→22:05)
[2017-06-26] MEDS: ENOXAPARIN 30 MG/0.3 ML SYRINGE SUBCUT SCH (09:53)
[2017-06-26] MEDS: ASPIRIN 325 MG TABLET PO SCH (09:53)
[2017-06-26] MEDS: AMOXICILLIN 500 MG CAPSULE PO SCH ×2 (09:53→22:05)
[2017-06-26] MEDS: CLOPIDOGREL 75 MG TABLET PO SCH (11:55)
[2017-06-26] MEDS: SIMVASTATIN 40 MG TABLET PO SCH (22:05)
[2017-06-27 05:47] LABS: Basophils % 0.8 % (0.0-0.8); Eosinophils # 0.5 10*3/uL (0.0-0.87); Eosinophils % 10.5 % (0.00-10.9); Hematocrit 26.5 VOL% (42.0-52.0); Hemoglobin 9.2 GM/DL (14.0-18.0); Immature Granulocytes % 0.2 %; Immature Granulocytes Absolute 0.01 #; Lymphocytes # 1.3 10*3/uL (1.4-4.0); Lymphocytes % 25.9 % (21.2-54.2); Mean Corpuscular HGB Conc 34.7 GM/DL (32-36); Mean Corpuscular Hemoglobin 34 PG (27-34); Mean Corpuscular Volume 96.4 FL (87-102); Mean Platelet Volume 9.6 FL (9.6-12.0); Monocytes # 0.7 10*3/uL (0.11-0.8); Neutrophils # 2.5 10*3/uL (1.4-7.4); Neutrophils % 49.6 % (38.7-73.9); Platelet Count 305 T/CUMM (130-400); Red Blood Count 2.75 MC/CUMM (3.8-5.5); Red Cell Distribution Width 13.7 % (9.3-17.3); White Blood Count 5.1 T/CUMM (4-12)
[2017-06-27 06:21] LABS: Calcium 8.3 MG/DL (8.5-10.1); Osmolality,Calculated 281.8 MOS/KG (273-304); Potassium 5.2 MMOL/L (3.5-5.1)
[2017-06-27] MEDS ORDERED: HEPARIN 10,000 UNIT/10 ML VIAL IV SCH (08:00)
[2017-06-27] MEDS ORDERED: ACETAMINOPHEN 325 MG TABLET PO PRN (09:46)
[2017-06-27] MEDS: ASPIRIN 325 MG TABLET PO SCH (10:19)
[2017-06-27] MEDS: ENOXAPARIN 30 MG/0.3 ML SYRINGE SUBCUT SCH (10:19)
[2017-06-27] MEDS: AMOXICILLIN 500 MG CAPSULE PO SCH ×2 (10:19→20:47)
[2017-06-27] MEDS: CLOPIDOGREL 75 MG TABLET PO SCH (10:20)
[2017-06-27] MEDS: PANTOPRAZOLE 40 MG TABLET PO SCH ×2 (10:20→20:47)
[2017-06-27] MEDS: amLODIPine 5 MG TABLET PO SCH (13:12)
[2017-06-27] MEDS: SIMVASTATIN 40 MG TABLET PO SCH (20:47)
[2017-06-28] MEDS: ENOXAPARIN 30 MG/0.3 ML SYRINGE SUBCUT SCH (08:51)
[2017-06-28] MEDS: PANTOPRAZOLE 40 MG TABLET PO SCH ×2 (08:52→20:35)
[2017-06-28] MEDS: amLODIPine 5 MG TABLET PO SCH (08:52)
[2017-06-28] MEDS: CLOPIDOGREL 75 MG TABLET PO SCH (08:52)
[2017-06-28] MEDS: AMOXICILLIN 500 MG CAPSULE PO SCH ×2 (08:52→20:35)
[2017-06-28] MEDS: ASPIRIN 325 MG TABLET PO SCH (08:52)
[2017-06-28] MEDS: SIMVASTATIN 40 MG TABLET PO SCH (20:35)
[2017-06-29 06:03] LABS: Basophils % 0.8 % (0.0-0.8); Eosinophils # 0.6 10*3/uL (0.0-0.87); Eosinophils % 10.4 % (0.00-10.9); Hematocrit 28.8 VOL% (42.0-52.0); Hemoglobin 9.5 GM/DL (14.0-18.0); Immature Granulocytes % 0.4 %; Immature Granulocytes Absolute 0.02 #; Lymphocytes # 1.3 10*3/uL (1.4-4.0); Lymphocytes % 23.8 % (21.2-54.2); Mean Corpuscular Hemoglobin 32 PG (27-34); Mean Platelet Volume 9.3 FL (9.6-12.0); Monocytes # 0.7 10*3/uL (0.11-0.8); Monocytes % 12.3 % (1.7-12.7); Neutrophils # 2.8 10*3/uL (1.4-7.4); Neutrophils % 52.3 % (38.7-73.9); Platelet Count 354 T/CUMM (130-400); Red Blood Count 2.94 MC/CUMM (3.8-5.5); Red Cell Distribution Width 13.6 % (9.3-17.3); White Blood Count 5.3 T/CUMM (4-12)
[2017-06-29 07:25] LABS: Calcium 8.6 MG/DL (8.5-10.1)
[2017-06-29] MEDS ORDERED: ZALEPLON 5 MG CAPSULE PO PRN (09:56)
[2017-06-29] MEDS: ASPIRIN 325 MG TABLET PO SCH (10:04)
[2017-06-29] MEDS: ENOXAPARIN 30 MG/0.3 ML SYRINGE SUBCUT SCH (10:04)
[2017-06-29] MEDS: AMOXICILLIN 500 MG CAPSULE PO SCH ×2 (10:04→21:24)
[2017-06-29] MEDS: CLOPIDOGREL 75 MG TABLET PO SCH (10:05)
[2017-06-29] MEDS: PANTOPRAZOLE 40 MG TABLET PO SCH ×2 (10:05→21:24)
[2017-06-29] MEDS: amLODIPine 5 MG TABLET PO SCH (10:05)
[2017-06-29] MEDS: SIMVASTATIN 40 MG TABLET PO SCH (21:24)
[2017-06-30] MEDS: ENOXAPARIN 30 MG/0.3 ML SYRINGE SUBCUT SCH (08:50)
[2017-06-30] MEDS: AMOXICILLIN 500 MG CAPSULE PO SCH ×2 (08:50→21:43)
[2017-06-30] MEDS: ASPIRIN 325 MG TABLET PO SCH (08:50)
[2017-06-30] MEDS: PANTOPRAZOLE 40 MG TABLET PO SCH ×2 (08:51→21:43)
[2017-06-30] MEDS: CLOPIDOGREL 75 MG TABLET PO SCH (08:51)
[2017-06-30] MEDS: amLODIPine 5 MG TABLET PO SCH (08:51)
[2017-06-30] MEDS: SIMVASTATIN 40 MG TABLET PO SCH (21:43)
[2017-07-01 05:29] LABS: Basophils # 0.1 10*3/uL (0.0-0.2); Basophils % 0.9 % (0.0-0.8); Eosinophils # 0.6 10*3/uL (0.0-0.87); Eosinophils % 9.7 % (0.00-10.9); Hematocrit 25.9 VOL% (42.0-52.0); Hemoglobin 9.1 GM/DL (14.0-18.0); Immature Granulocytes % 0.4 %; Immature Granulocytes Absolute 0.02 #; Lymphocytes # 1.5 10*3/uL (1.4-4.0); Lymphocytes % 25.5 % (21.2-54.2); Mean Corpuscular HGB Conc 35.1 GM/DL (32-36); Mean Corpuscular Hemoglobin 34 PG (27-34); Mean Corpuscular Volume 95.6 FL (87-102); Mean Platelet Volume 9.5 FL (9.6-12.0); Monocytes # 0.6 10*3/uL (0.11-0.8); Monocytes % 11.2 % (1.7-12.7); Neutrophils % 52.3 % (38.7-73.9); Platelet Count 393 T/CUMM (130-400); Red Blood Count 2.71 MC/CUMM (3.8-5.5); Red Cell Distribution Width 13.7 % (9.3-17.3); White Blood Count 5.7 T/CUMM (4-12)
[2017-07-01 05:48] LABS: Calcium 7.9 MG/DL (8.5-10.1); Osmolality,Calculated 278.4 MOS/KG (273-304); Potassium 5.3 MMOL/L (3.5-5.1)
[2017-07-01] MEDS: ENOXAPARIN 30 MG/0.3 ML SYRINGE SUBCUT SCH (09:51)
[2017-07-01] MEDS: CLOPIDOGREL 75 MG TABLET PO SCH (09:51)
[2017-07-01] MEDS: AMOXICILLIN 500 MG CAPSULE PO SCH (09:51)
[2017-07-01] MEDS: ASPIRIN 325 MG TABLET PO SCH (09:51)
[2017-07-01] MEDS: PANTOPRAZOLE 40 MG TABLET PO SCH (09:51)
[2017-07-01] MEDS: amLODIPine 5 MG TABLET PO SCH (09:51)
[2017-07-01 11:36] VITALS: BP 145/75
[2017-07-01 12:54] LABS: Troponin I Only < 0.015 NG/ML (0.00-0.045)
== END 2017-07-01 13:37 | disposition swing bed (61) | DRG 56 ==
LOC: EDBD → EDUNIT# → N.ED 02:45 → SUATTDRO 05:09 → N.EDINP 05:09 → N.2E 05:33
PROVIDERS: ATTEND Internal Medicine

== ENCOUNTER 2019-09-24 15:20 | Inpatient (IN) ==
[2019-09-24 15:56] LABS: Basophils % 0.2 % (0.0-0.8); Hematocrit 32.8 VOL% (42.0-52.0); Hemoglobin 10.7 GM/DL (14.0-18.0); Immature Granulocytes % 0.8 %; Immature Granulocytes Absolute 0.05 #; Lymphocytes # 0.5 10*3/uL (1.4-4.0); Lymphocytes % 7.8 % (21.2-54.2); Mean Corpuscular HGB Conc 32.6 GM/DL (32-36); Mean Corpuscular Volume 104.8 FL (87-102); Mean Platelet Volume 10.6 FL (9.6-12.0); Monocytes % 6.5 % (1.7-12.7); Neutrophils % 84.7 % (38.7-73.9); Platelet Count 239 T/CUMM (130-400); Red Blood Count 3.13 MC/CUMM (3.8-5.5); Red Cell Distribution Width 13.5 % (9.3-17.3); White Blood Count 6.5 T/CUMM (4-12)
[2019-09-24 16:09] LABS: PT Patient Result 10.9 SECS (9.8-11.9)
[2019-09-24 16:19] LABS: Alanine Aminotransferase 31 U/L (16-61); Albumin 3.4 G/DL (3.4-5.0); Alkaline Phosphatase 58 U/L (45-117); Aspartate Amino Transferase 40 U/L (0-37); Bilirubin,Total < 0.39 MG/DL (0.2-1.0); Blood Urea Nitrogen 26 MG/DL (7-18); Calcium 8.9 MG/DL (8.5-10.1); Estimated Glom Filtration Rate 10 ML/MIN; Glucose 109 MG/DL (74-106); Osmolality,Calculated 269.5 MOS/KG (273-304); Total Protein 8.3 G/DL (6.4-8.3)
[2019-09-24] MEDS ORDERED: AZITHROMYCIN INJ 500 MG in SODIUM CHLORIDE 0.9% 250 ML IV STA (17:21)
[2019-09-24] MEDS ORDERED: ALUMINUM/MAGNES/SIMETH MAX STR 30 ML UDCUP PO PRN (17:52)
[2019-09-24] MEDS ORDERED: ONDANSETRON 4 MG/2 ML VIAL IV PRN (17:52)
[2019-09-24] MEDS ORDERED: ZALEPLON 5 MG CAPSULE PO PRN (17:52)
[2019-09-24] MEDS ORDERED: DEXTROSE 10% 250 ML BAG IV PRN (17:52)
[2019-09-24] MEDS ORDERED: DOCUSATE SODIUM 100 MG CAPSULE PO PRN (17:52)
[2019-09-24] MEDS ORDERED: LACTULOSE 20 GM/30 ML UDCUP PO PRN (17:52)
[2019-09-24] MEDS ORDERED: GLUCAGON 1 MG VIAL IM PRN (17:52)
[2019-09-24] MEDS ORDERED: BISACODYL 5 MG TABLET PO PRN (17:52)
[2019-09-24] MEDS ORDERED: guaiFENesin/DM ER 600-30 MG TABLET PO PRN (17:52)
[2019-09-24] MEDS ORDERED: SIMETHICONE CHEW 125 MG TABLET PO PRN (17:52)
[2019-09-24] MEDS ORDERED: CALCIUM CARBONATE CHEW 500 MG TABLET PO PRN (17:52)
[2019-09-24] MEDS ORDERED: diphenhydrAMINE CAP 25 MG CAPSULE PO PRN (17:52)
[2019-09-24 18:34] LABS: ABG Base Excess 8.6 MMOL/L (-2.5-2.5); ABG HCO3 32.6 MMOL/L (20-26); ABG Oxygen Saturation 96.5 % (95-100); ABG PCO2 42.9 MM HG (35-48); ABG PH 7.499 (7.35-7.45); ABG PO2 89.6 MM HG (80-95); ABG TCO2 33.9 MMOL/L (23-27)
[2019-09-24] MEDS: cefTRIAXone 1,000 MG in SYRINGE 1 EACH IV SCH (22:06)
[2019-09-24] MEDS: HEPARIN 5,000 UNIT/1 ML VIAL SUBCUT SCH (22:33)
[2019-09-25] MEDS: hydrALAZINE 20 MG/1 ML VIAL IV PRN ×2 (01:59→16:23)
[2019-09-25 05:07] LABS: Basophils % 0.2 % (0.0-0.8); Hematocrit 32.1 VOL% (42.0-52.0); Hemoglobin 10.4 GM/DL (14.0-18.0); Immature Granulocytes % 0.8 %; Immature Granulocytes Absolute 0.05 #; Lymphocytes # 0.5 10*3/uL (1.4-4.0); Lymphocytes % 8.2 % (21.2-54.2); Mean Corpuscular HGB Conc 32.4 GM/DL (32-36); Mean Corpuscular Volume 104.6 FL (87-102); Monocytes % 8.1 % (1.7-12.7); Neutrophils % 82.7 % (38.7-73.9); Platelet Count 244 T/CUMM (130-400); Red Blood Count 3.07 MC/CUMM (3.8-5.5); Red Cell Distribution Width 13.6 % (9.3-17.3)
[2019-09-25] MEDS: HEPARIN 5,000 UNIT/1 ML VIAL SUBCUT SCH ×3 (05:08→22:28)
[2019-09-25 05:34] LABS: ABG Base Excess 5.3 MMOL/L (-2.5-2.5); ABG Oxygen Saturation 94.6 % (95-100); ABG PCO2 38.6 MM HG (35-48); ABG PH 7.493 (7.35-7.45); ABG PO2 74.1 MM HG (80-95); ABG TCO2 30.1 MMOL/L (23-27); Allen Test Positive
[2019-09-25 06:16] LABS: Sedimentation Rate-Westergren 100 MM/HR (0-20)
[2019-09-25 06:21] LABS: Albumin 2.9 G/DL (3.4-5.0); Bilirubin,Total 0.4 MG/DL (0.2-1.0); Calcium 8.7 MG/DL (8.5-10.1); Ferritin 4274.7 ng/ml (26-388); Osmolality,Calculated 273.7 MOS/KG (273-304); Risk Ratio 2.55; Total Protein 7.7 G/DL (6.4-8.3); VLDL CHOLESTEROL 14.8 MG/DL
[2019-09-25] MEDS: amLODIPine 5 MG TABLET PO SCH (09:26)
[2019-09-25] MEDS: ASPIRIN 325 MG TABLET PO SCH (09:26)
[2019-09-25] MEDS: PANTOPRAZOLE 40 MG TABLET PO SCH (09:26)
[2019-09-25] MEDS: FLUoxetine 20 MG CAPSULE PO SCH (09:26)
[2019-09-25] MEDS ORDERED: AZITHROMYCIN INJ 500 MG in SODIUM CHLORIDE 0.9% 250 ML IV SCH (21:00)
[2019-09-25] MEDS: cefTRIAXone 1,000 MG in SYRINGE 1 EACH IV SCH (22:20)
[2019-09-25] MEDS: SIMVASTATIN 40 MG TABLET PO SCH (22:27)
[2019-09-25] MEDS: traZODone 50 MG TABLET PO PRN (22:27)
[2019-09-26 04:18] LABS: ABG Base Excess 2.5 MMOL/L (-2.5-2.5); ABG HCO3 26.6 MMOL/L (20-26); ABG Oxygen Saturation 93.4 % (95-100); ABG PCO2 42.4 MM HG (35-48); ABG PH 7.417 (7.35-7.45); ABG PO2 70.5 MM HG (80-95); ABG TCO2 24.9 MMOL/L (23-27); Allen Test Positive
[2019-09-26 04:33] LABS: Basophils % 0.2 % (0.0-0.8); Hematocrit 29.8 VOL% (42.0-52.0); Hemoglobin 9.7 GM/DL (14.0-18.0); Immature Granulocytes % 0.6 %; Immature Granulocytes Absolute 0.03 #; Lymphocytes # 0.8 10*3/uL (1.4-4.0); Lymphocytes % 14.8 % (21.2-54.2); Mean Corpuscular HGB Conc 32.6 GM/DL (32-36); Mean Corpuscular Volume 104.2 FL (87-102); Mean Platelet Volume 10.9 FL (9.6-12.0); Monocytes % 7.5 % (1.7-12.7); Neutrophils % 76.9 % (38.7-73.9); Platelet Count 251 T/CUMM (130-400); Red Blood Count 2.86 MC/CUMM (3.8-5.5); Red Cell Distribution Width 13.4 % (9.3-17.3); White Blood Count 5.3 T/CUMM (4-12)
[2019-09-26 05:27] LABS: Albumin 2.8 G/DL (3.4-5.0); Bilirubin,Total 1.2 MG/DL (0.2-1.0); Ferritin 5299.6 ng/ml (26-388); Osmolality,Calculated 280.7 MOS/KG (273-304); Total Protein 7.2 G/DL (6.4-8.3)
[2019-09-26] MEDS: HEPARIN 5,000 UNIT/1 ML VIAL SUBCUT SCH ×3 (06:10→22:27)
[2019-09-26] MEDS: PANTOPRAZOLE 40 MG TABLET PO SCH (08:43)
[2019-09-26] MEDS: ASPIRIN 325 MG TABLET PO SCH (08:43)
[2019-09-26] MEDS: FLUoxetine 20 MG CAPSULE PO SCH (08:43)
[2019-09-26] MEDS: amLODIPine 5 MG TABLET PO SCH (08:43)
[2019-09-26 09:21] LABS: Sedimentation Rate-Westergren 102 MM/HR (0-20)
[2019-09-26] MEDS: AZITHROMYCIN 250 MG TABLET PO SCH (20:45)
[2019-09-26] MEDS: ACETAMINOPHEN 325 MG TABLET PO PRN (20:46)
[2019-09-26] MEDS: SIMVASTATIN 40 MG TABLET PO SCH (20:47)
[2019-09-26] MEDS: cefTRIAXone 1,000 MG in SYRINGE 1 EACH IV SCH (20:47)
[2019-09-27] MEDS: ACETAMINOPHEN 325 MG TABLET PO PRN ×2 (02:46→18:00)
[2019-09-27 03:32] LABS: ABG Base Excess 1.5 MMOL/L (-2.5-2.5); ABG HCO3 25.5 MMOL/L (20-26); ABG Oxygen Saturation 94.9 % (95-100); ABG PCO2 37.8 MM HG (35-48); ABG PH 7.447 (7.35-7.45); ABG PO2 78.8 MM HG (80-95); ABG TCO2 26.7 MMOL/L (23-27); Allen Test Positive
[2019-09-27] MEDS: HEPARIN 5,000 UNIT/1 ML VIAL SUBCUT SCH ×3 (05:45→21:46)
[2019-09-27 06:41] LABS: Bilirubin,Total 1.2 MG/DL (0.2-1.0); Calcium 8.3 MG/DL (8.5-10.1); Osmolality,Calculated 279.2 MOS/KG (273-304); Total Protein 7.7 G/DL (6.4-8.3)
[2019-09-27 08:17] LABS: Sedimentation Rate-Westergren 113 MM/HR (0-20)
[2019-09-27 08:24] LABS: Basophils % 0.4 % (0.0-0.8); Hematocrit 31.3 VOL% (42.0-52.0); Hemoglobin 10.4 GM/DL (14.0-18.0); Immature Granulocytes % 0.6 %; Immature Granulocytes Absolute 0.03 #; Lymphocytes # 0.8 10*3/uL (1.4-4.0); Mean Corpuscular HGB Conc 33.2 GM/DL (32-36); Mean Corpuscular Volume 103.3 FL (87-102); Mean Platelet Volume 11.4 FL (9.6-12.0); Monocytes % 6.4 % (1.7-12.7); Neutrophils % 76.6 % (38.7-73.9); Platelet Count 283 T/CUMM (130-400); Red Blood Count 3.03 MC/CUMM (3.8-5.5); Red Cell Distribution Width 13.6 % (9.3-17.3); White Blood Count 4.8 T/CUMM (4-12)
[2019-09-27] MEDS: amLODIPine 5 MG TABLET PO SCH (09:40)
[2019-09-27] MEDS: PANTOPRAZOLE 40 MG TABLET PO SCH (09:40)
[2019-09-27] MEDS: FLUoxetine 20 MG CAPSULE PO SCH (09:40)
[2019-09-27] MEDS: ASPIRIN 325 MG TABLET PO SCH (09:40)
[2019-09-27] MEDS: AZITHROMYCIN 250 MG TABLET PO SCH (21:30)
[2019-09-27] MEDS: SIMVASTATIN 40 MG TABLET PO SCH (21:31)
[2019-09-27] MEDS: cefTRIAXone 1,000 MG in SYRINGE 1 EACH IV SCH (21:43)
[2019-09-27] MEDS: traZODone 50 MG TABLET PO PRN (21:47)
[2019-09-28 03:59] LABS: ABG HCO3 22.3 MMOL/L (20-26); ABG Oxygen Saturation 89.8 % (95-100); ABG PCO2 36.4 MM HG (35-48); ABG PH 7.406 (7.35-7.45); ABG PO2 60.3 MM HG (80-95); ABG TCO2 23.5 MMOL/L (23-27); Allen Test Positive
[2019-09-28 05:29] LABS: Basophils % 0.5 % (0.0-0.8); Hematocrit 31.9 VOL% (42.0-52.0); Hemoglobin 10.4 GM/DL (14.0-18.0); Immature Granulocytes Absolute 0.08 #; Lymphocytes # 0.4 10*3/uL (1.4-4.0); Lymphocytes % 10.2 % (21.2-54.2); Mean Corpuscular HGB Conc 32.6 GM/DL (32-36); Mean Corpuscular Volume 104.2 FL (87-102); Mean Platelet Volume 10.8 FL (9.6-12.0); Monocytes % 7.9 % (1.7-12.7); Neutrophils % 79.4 % (38.7-73.9); Platelet Count 303 T/CUMM (130-400); Red Blood Count 3.06 MC/CUMM (3.8-5.5); Red Cell Distribution Width 13.5 % (9.3-17.3); White Blood Count 3.9 T/CUMM (4-12)
[2019-09-28] MEDS: HEPARIN 5,000 UNIT/1 ML VIAL SUBCUT SCH ×3 (06:02→21:43)
[2019-09-28 06:24] LABS: Albumin 2.8 G/DL (3.4-5.0); Bilirubin,Total 0.6 MG/DL (0.2-1.0); Calcium 8.6 MG/DL (8.5-10.1); Ferritin 5636.1 ng/ml (26-388); Osmolality,Calculated 275.9 MOS/KG (273-304); Total Protein 7.6 G/DL (6.4-8.3)
[2019-09-28 07:25] LABS: Sedimentation Rate-Westergren 105 MM/HR (0-20)
[2019-09-28] MEDS: ASPIRIN 325 MG TABLET PO SCH (08:24)
[2019-09-28] MEDS: PANTOPRAZOLE 40 MG TABLET PO SCH (08:24)
[2019-09-28] MEDS: amLODIPine 5 MG TABLET PO SCH (08:24)
[2019-09-28] MEDS: FLUoxetine 20 MG CAPSULE PO SCH (08:24)
[2019-09-28] MEDS ORDERED: LOPERAMIDE 2 MG CAPSULE PO PRN (08:43)
[2019-09-28] MEDS ORDERED: LOPERAMIDE 2 MG CAPSULE PO ONE (08:43)
[2019-09-28] MEDS: SIMVASTATIN 40 MG TABLET PO SCH (21:45)
[2019-09-28] MEDS: AZITHROMYCIN 250 MG TABLET PO SCH (21:45)
[2019-09-28] MEDS: traZODone 50 MG TABLET PO PRN (21:46)
[2019-09-28] MEDS: cefTRIAXone 1,000 MG in SYRINGE 1 EACH IV SCH (23:35)
[2019-09-29 05:33] LABS: ABG Base Excess -2.6 MMOL/L (-2.5-2.5); ABG PCO2 37.5 MM HG (35-48); ABG PO2 50.7 MM HG (80-95); ABG TCO2 20.3 MMOL/L (23-27); Allen Test Positive
[2019-09-29 06:14] LABS: Basophils % 0.5 % (0.0-0.8); Hematocrit 30.1 VOL% (42.0-52.0); Immature Granulocytes % 4.3 %; Immature Granulocytes Absolute 0.17 #; Lymphocytes # 0.8 10*3/uL (1.4-4.0); Lymphocytes % 19.2 % (21.2-54.2); Mean Corpuscular HGB Conc 33.2 GM/DL (32-36); Mean Corpuscular Volume 102.7 FL (87-102); Mean Platelet Volume 10.9 FL (9.6-12.0); Monocytes % 6.6 % (1.7-12.7); Neutrophils % 69.4 % (38.7-73.9); Platelet Count 311 T/CUMM (130-400); Red Blood Count 2.93 MC/CUMM (3.8-5.5); Red Cell Distribution Width 13.5 % (9.3-17.3); White Blood Count 3.9 T/CUMM (4-12)
[2019-09-29] MEDS: HEPARIN 5,000 UNIT/1 ML VIAL SUBCUT SCH ×3 (06:46→21:27)
[2019-09-29 07:02] LABS: Albumin 2.7 G/DL (3.4-5.0); Bilirubin,Total 0.5 MG/DL (0.2-1.0); Ferritin 5743.7 ng/ml (26-388); Osmolality,Calculated 286.5 MOS/KG (273-304); Total Protein 7.4 G/DL (6.4-8.3)
[2019-09-29 07:22] LABS: ABG Base Excess -3.2 MMOL/L (-2.5-2.5); ABG HCO3 21.6 MMOL/L (20-26); ABG Oxygen Saturation 93.5 % (95-100); ABG PCO2 37.5 MM HG (35-48); ABG PH 7.369 (7.35-7.45); ABG PO2 72.6 MM HG (80-95); ABG TCO2 19.8 MMOL/L (23-27)
[2019-09-29 08:05] LABS: Sedimentation Rate-Westergren 114 MM/HR (0-20)
[2019-09-29] MEDS: ASPIRIN 325 MG TABLET PO SCH (10:15)
[2019-09-29] MEDS: FLUoxetine 20 MG CAPSULE PO SCH (10:15)
[2019-09-29] MEDS: PANTOPRAZOLE 40 MG TABLET PO SCH (10:15)
[2019-09-29] MEDS: amLODIPine 5 MG TABLET PO SCH (10:27)
[2019-09-29] MEDS: traZODone 50 MG TABLET PO PRN (20:10)
[2019-09-29] MEDS: SIMVASTATIN 40 MG TABLET PO SCH (20:10)
[2019-09-29] MEDS: AZITHROMYCIN 250 MG TABLET PO SCH (20:10)
[2019-09-29] MEDS: cefTRIAXone 1,000 MG in SYRINGE 1 EACH IV SCH (21:26)
[2019-09-30] MEDS: HEPARIN 5,000 UNIT/1 ML VIAL SUBCUT SCH ×3 (05:42→21:37)
[2019-09-30 07:10] LABS: ABG Base Excess -0.9 MMOL/L (-2.5-2.5); ABG HCO3 23.6 MMOL/L (20-26); ABG Oxygen Saturation 95.6 % (95-100); ABG PCO2 40.6 MM HG (35-48); ABG PH 7.382 (7.35-7.45); ABG PO2 82.9 MM HG (80-95); ABG TCO2 21.9 MMOL/L (23-27); Allen Test Positive; Pt O2 Delivery Device Other
[2019-09-30] MEDS: PANTOPRAZOLE 40 MG TABLET PO SCH (09:05)
[2019-09-30] MEDS: ASPIRIN 325 MG TABLET PO SCH (09:05)
[2019-09-30] MEDS: amLODIPine 5 MG TABLET PO SCH (09:05)
[2019-09-30] MEDS: FLUoxetine 20 MG CAPSULE PO SCH (09:05)
[2019-09-30 09:07] LABS: Basophils % 0.2 % (0.0-0.8); Hematocrit 31.1 VOL% (42.0-52.0); Hemoglobin 10.1 GM/DL (14.0-18.0); Immature Granulocytes % 2.6 %; Immature Granulocytes Absolute 0.12 #; Lymphocytes # 0.6 10*3/uL (1.4-4.0); Lymphocytes % 12.8 % (21.2-54.2); Mean Corpuscular HGB Conc 32.5 GM/DL (32-36); Mean Corpuscular Volume 106.1 FL (87-102); Mean Platelet Volume 10.4 FL (9.6-12.0); Monocytes % 4.9 % (1.7-12.7); Neutrophils % 79.5 % (38.7-73.9); Platelet Count 321 T/CUMM (130-400); Red Blood Count 2.93 MC/CUMM (3.8-5.5); Red Cell Distribution Width 13.5 % (9.3-17.3); White Blood Count 4.5 T/CUMM (4-12)
[2019-09-30 09:27] LABS: Alanine Aminotransferase 45 U/L (16-61); Albumin 2.6 G/DL (3.4-5.0); Alkaline Phosphatase 47 U/L (45-117); Aspartate Amino Transferase 76 U/L (0-37); Bilirubin,Total < 0.39 MG/DL (0.2-1.0); Blood Urea Nitrogen 56 MG/DL (7-18); Calcium 8.2 MG/DL (8.5-10.1); Estimated Glom Filtration Rate 5 ML/MIN; Glucose 135 MG/DL (74-106); Osmolality,Calculated 281.5 MOS/KG (273-304); Total Protein 7.6 G/DL (6.4-8.3)
[2019-09-30 09:47] LABS: Ferritin 7341.3 ng/ml (26-388)
[2019-09-30 10:10] LABS: Sedimentation Rate-Westergren 113 MM/HR (0-20)
[2019-09-30] MEDS: cefTRIAXone 1,000 MG in SYRINGE 1 EACH IV SCH (21:37)
[2019-09-30] MEDS: traZODone 50 MG TABLET PO PRN (21:37)
[2019-09-30] MEDS: SIMVASTATIN 40 MG TABLET PO SCH (21:37)
[2019-10-01 04:01] LABS: ABG Base Excess -0.4 MMOL/L (-2.5-2.5); ABG HCO3 23.9 MMOL/L (20-26); ABG Oxygen Saturation 87.1 % (95-100); ABG PCO2 39.1 MM HG (35-48); Allen Test Positive; Pt O2 Delivery Device Room Air
[2019-10-01] MEDS: HEPARIN 5,000 UNIT/1 ML VIAL SUBCUT SCH ×3 (06:06→23:13)
[2019-10-01 06:09] LABS: Basophils % 0.4 % (0.0-0.8); Eosinophils # 0.1 10*3/uL (0.0-0.87); Eosinophils % 0.9 % (0.00-10.9); Hematocrit 30.6 VOL% (42.0-52.0); Hemoglobin 9.9 GM/DL (14.0-18.0); Immature Granulocytes % 2.8 %; Immature Granulocytes Absolute 0.15 #; Lymphocytes # 0.7 10*3/uL (1.4-4.0); Lymphocytes % 13.8 % (21.2-54.2); Mean Corpuscular HGB Conc 32.4 GM/DL (32-36); Mean Corpuscular Volume 105.2 FL (87-102); Mean Platelet Volume 10.5 FL (9.6-12.0); Monocytes % 5.3 % (1.7-12.7); Neutrophils % 76.8 % (38.7-73.9); Platelet Count 337 T/CUMM (130-400); Red Blood Count 2.91 MC/CUMM (3.8-5.5); Red Cell Distribution Width 13.5 % (9.3-17.3); White Blood Count 5.3 T/CUMM (4-12)
[2019-10-01 07:24] LABS: Sedimentation Rate-Westergren 114 MM/HR (0-20)
[2019-10-01 09:31] LABS: Alanine Aminotransferase 42 U/L (16-61); Albumin 2.4 G/DL (3.4-5.0); Alkaline Phosphatase 53 U/L (45-117); Aspartate Amino Transferase 55 U/L (0-37); Bilirubin,Total < 0.39 MG/DL (0.2-1.0); Blood Urea Nitrogen 67 MG/DL (7-18); Calcium 8.4 MG/DL (8.5-10.1); Estimated Glom Filtration Rate 4 ML/MIN; Glucose 94 MG/DL (74-106); Osmolality,Calculated 286.2 MOS/KG (273-304); Total Protein 7.4 G/DL (6.4-8.3)
[2019-10-01] MEDS: ASPIRIN 325 MG TABLET PO SCH (09:50)
[2019-10-01] MEDS: FLUoxetine 20 MG CAPSULE PO SCH (09:50)
[2019-10-01] MEDS: PANTOPRAZOLE 40 MG TABLET PO SCH (09:50)
[2019-10-01] MEDS: amLODIPine 5 MG TABLET PO SCH (11:25)
[2019-10-01] MEDS: cefTRIAXone 1,000 MG in SYRINGE 1 EACH IV SCH (23:10)
[2019-10-01] MEDS: traZODone 50 MG TABLET PO PRN (23:13)
[2019-10-01] MEDS: SIMVASTATIN 40 MG TABLET PO SCH (23:14)
[2019-10-02 04:30] LABS: ABG Base Excess -0.9 MMOL/L (-2.5-2.5); ABG HCO3 23.6 MMOL/L (20-26); ABG Oxygen Saturation 95.3 % (95-100); ABG PCO2 40.7 MM HG (35-48); ABG PH 7.381 (7.35-7.45); ABG PO2 79.7 MM HG (80-95); ABG TCO2 21.8 MMOL/L (23-27); Allen Test Positive
[2019-10-02 05:51] LABS: Basophils % 0.7 % (0.0-0.8); Eosinophils # 0.1 10*3/uL (0.0-0.87); Eosinophils % 1.6 % (0.00-10.9); Hematocrit 33.2 VOL% (42.0-52.0); Hemoglobin 10.7 GM/DL (14.0-18.0); Immature Granulocytes % 5.5 %; Immature Granulocytes Absolute 0.24 #; Lymphocytes # 0.8 10*3/uL (1.4-4.0); Lymphocytes % 18.6 % (21.2-54.2); Mean Corpuscular HGB Conc 32.2 GM/DL (32-36); Mean Corpuscular Volume 104.1 FL (87-102); Mean Platelet Volume 10.5 FL (9.6-12.0); Neutrophils % 67.6 % (38.7-73.9); Platelet Count 373 T/CUMM (130-400); Red Blood Count 3.19 MC/CUMM (3.8-5.5); Red Cell Distribution Width 13.4 % (9.3-17.3); White Blood Count 4.4 T/CUMM (4-12)
[2019-10-02 06:40] LABS: Albumin 2.6 G/DL (3.4-5.0); Bilirubin,Total 0.4 MG/DL (0.2-1.0); Ferritin 6793.9 ng/ml (26-388); Osmolality,Calculated 279.2 MOS/KG (273-304)
[2019-10-02 06:49] LABS: Anisocytosis 1+; Band Neutrophils 5 % (0-10); Lymphocytes 14 % (20-55); Macrocytosis 1+; Metamyelocytes 2 %; Myelocytes 1 %; Nucleated Red Blood Cells 1 (0-5); Platelet Estimate Normal; Segmented Neutrophils 72 % (50-85); Total Cells Counted 100
[2019-10-02] MEDS: HEPARIN 5,000 UNIT/1 ML VIAL SUBCUT SCH ×3 (07:05→21:19)
[2019-10-02 07:38] LABS: Sedimentation Rate-Westergren 111 MM/HR (0-20)
[2019-10-02] MEDS: PANTOPRAZOLE 40 MG TABLET PO SCH (09:30)
[2019-10-02] MEDS: FLUoxetine 20 MG CAPSULE PO SCH (09:30)
[2019-10-02] MEDS: amLODIPine 5 MG TABLET PO SCH (09:30)
[2019-10-02] MEDS: ASPIRIN 325 MG TABLET PO SCH (09:30)
[2019-10-02] MEDS: ACETAMINOPHEN 325 MG TABLET PO PRN (09:30)
[2019-10-02] MEDS: SIMVASTATIN 40 MG TABLET PO SCH (21:19)
[2019-10-03 04:22] LABS: ABG Base Excess -2.9 MMOL/L (-2.5-2.5); ABG Oxygen Saturation 96.4 % (95-100); ABG PCO2 35.4 MM HG (35-48); ABG PH 7.391 (7.35-7.45); ABG PO2 92.1 MM HG (80-95); ABG TCO2 19.2 MMOL/L (23-27); Allen Test Positive
[2019-10-03] MEDS: HEPARIN 5,000 UNIT/1 ML VIAL SUBCUT SCH ×3 (05:13→21:27)
[2019-10-03 06:42] LABS: Basophils # 0.1 10*3/uL (0.0-0.2); Basophils % 0.9 % (0.0-0.8); Eosinophils # 0.2 10*3/uL (0.0-0.87); Eosinophils % 3.2 % (0.00-10.9); Hematocrit 32.3 VOL% (42.0-52.0); Hemoglobin 10.4 GM/DL (14.0-18.0); Immature Granulocytes % 6.7 %; Immature Granulocytes Absolute 0.36 #; Lymphocytes # 1.1 10*3/uL (1.4-4.0); Lymphocytes % 19.8 % (21.2-54.2); Mean Corpuscular HGB Conc 32.2 GM/DL (32-36); Mean Corpuscular Volume 105.6 FL (87-102); Mean Platelet Volume 10.3 FL (9.6-12.0); Monocytes % 7.7 % (1.7-12.7); Neutrophils % 61.7 % (38.7-73.9); Platelet Count 446 T/CUMM (130-400); Red Blood Count 3.06 MC/CUMM (3.8-5.5); Red Cell Distribution Width 13.6 % (9.3-17.3); White Blood Count 5.4 T/CUMM (4-12)
[2019-10-03 07:33] LABS: Albumin 2.6 G/DL (3.4-5.0); Bilirubin,Total 0.9 MG/DL (0.2-1.0); Calcium 8.4 MG/DL (8.5-10.1); Osmolality,Calculated 280.5 MOS/KG (273-304); Total Protein 7.9 G/DL (6.4-8.3)
[2019-10-03 07:51] LABS: Ferritin 6184.3 ng/ml (26-388)
[2019-10-03 08:36] LABS: Sedimentation Rate-Westergren 111 MM/HR (0-20)
[2019-10-03] MEDS: ASPIRIN 325 MG TABLET PO SCH (09:12)
[2019-10-03] MEDS: PANTOPRAZOLE 40 MG TABLET PO SCH (09:12)
[2019-10-03] MEDS: amLODIPine 5 MG TABLET PO SCH (09:12)
[2019-10-03] MEDS: FLUoxetine 20 MG CAPSULE PO SCH (09:12)
[2019-10-03 13:13] LABS: Eosinophils 2 % (0-10); Lymphocytes 25 % (20-55); Platelet Estimate Increased; Segmented Neutrophils 69 % (50-85); Total Cells Counted 100
[2019-10-03] MEDS: SIMVASTATIN 40 MG TABLET PO SCH (21:27)
[2019-10-04 05:12] LABS: ABG Base Excess -0.6 MMOL/L (-2.5-2.5); ABG Oxygen Saturation 92.5 % (95-100); ABG PCO2 39.3 MM HG (35-48); ABG PH 7.404 (7.35-7.45); ABG PO2 68.1 MM HG (80-95); ABG TCO2 25.2 MMOL/L (23-27); Allen Test Positive; Pt O2 Delivery Device Room Air
[2019-10-04] MEDS: HEPARIN 5,000 UNIT/1 ML VIAL SUBCUT SCH (05:14)
[2019-10-04 06:57] LABS: Basophils # 0.1 10*3/uL (0.0-0.2); Basophils % 1.1 % (0.0-0.8); Eosinophils # 0.2 10*3/uL (0.0-0.87); Eosinophils % 2.8 % (0.00-10.9); Hematocrit 33.6 VOL% (42.0-52.0); Hemoglobin 10.8 GM/DL (14.0-18.0); Immature Granulocytes % 8.2 %; Immature Granulocytes Absolute 0.47 #; Lymphocytes # 1.1 10*3/uL (1.4-4.0); Lymphocytes % 19.6 % (21.2-54.2); Mean Corpuscular HGB Conc 32.1 GM/DL (32-36); Monocytes % 8.2 % (1.7-12.7); Neutrophils % 60.1 % (38.7-73.9); Platelet Count 494 T/CUMM (130-400); Red Blood Count 3.17 MC/CUMM (3.8-5.5); Red Cell Distribution Width 13.4 % (9.3-17.3); White Blood Count 5.7 T/CUMM (4-12)
[2019-10-04 07:26] LABS: Albumin 2.8 G/DL (3.4-5.0); Bilirubin,Total 0.6 MG/DL (0.2-1.0); Osmolality,Calculated 274.5 MOS/KG (273-304); Total Protein 8.3 G/DL (6.4-8.3)
[2019-10-04] MEDS: PANTOPRAZOLE 40 MG TABLET PO SCH (08:42)
[2019-10-04] MEDS: amLODIPine 5 MG TABLET PO SCH (08:42)
[2019-10-04] MEDS: ASPIRIN 325 MG TABLET PO SCH (08:42)
[2019-10-04] MEDS: FLUoxetine 20 MG CAPSULE PO SCH (08:43)
[2019-10-04 09:43] LABS: Sedimentation Rate-Westergren 15 MM/HR (0-20)
[2019-10-04 13:05] LABS: Band Neutrophils 2 % (0-10); Eosinophils 1 % (0-10); Lymphocytes 14 % (20-55); Metamyelocytes 3 %; Polychromasia Slight; Segmented Neutrophils 75 % (50-85); Total Cells Counted 100
[2019-10-04 13:06] LABS: Platelet Estimate Increased
[2019-10-04 17:29] VITALS: BP 109/56
[2019-10-04] MEDS ORDERED: APIXABAN 2.5 MG TABLET PO SCH (21:00)
== END 2019-10-04 18:33 | disposition home or self-care (01) | DRG 177 ==
LOC: EDUNIT# → EDBD → N.EDINP 15:20 → N.ED 15:20 → N.EDINP 19:30 → N.2E 20:29 → SUATTDRO 09-26 13:28
PROVIDERS: ADMIT Internal Medicine; ATTEND Hospitalist

== ENCOUNTER 2022-02-27 03:25 | Inpatient (IN) ==
[2022-02-27] MEDS ORDERED: ONDANSETRON 4 MG/2 ML VIAL ONE (03:34)
[2022-02-27] MEDS ORDERED: MORPHINE 2 MG/1 ML SYRINGE ONE (03:34)
[2022-02-27] MEDS ORDERED: FUROSEMIDE 40 MG/4 ML VIAL ONE (03:36)
[2022-02-27] MEDS ORDERED: methylPREDNISolone SOD SUC 125 MG/2 ML VIAL ONE (03:36)
[2022-02-27] MEDS ORDERED: ASPIRIN 325 MG TABLET PO STA (03:43)
[2022-02-27] MEDS ORDERED: ALBUTEROL/IPRATROPIUM 3 ML NEB RESP TX STA (03:43)
[2022-02-27] MEDS ORDERED: NITROGLYCERIN 2% OINT 1 INCH/GM PACK TOP STA (03:43)
[2022-02-27] MEDS ORDERED: MORPHINE 2 MG/1 ML SYRINGE IV STA (03:43)
[2022-02-27] MEDS ORDERED: ONDANSETRON 4 MG/2 ML VIAL IV STA (03:43)
[2022-02-27] MEDS ORDERED: FUROSEMIDE 100 MG/10 ML VIAL IV STA (03:43)
[2022-02-27] MEDS ORDERED: methylPREDNISolone SOD SUC 125 MG/2 ML VIAL IV STA (03:43)
[2022-02-27 03:56] LABS: Basophils # 0.1 10*3/uL (0.0-0.2); Basophils % 0.5 % (0.0-0.8); Eosinophils # 0.4 10*3/uL (0.0-0.87); Hematocrit 33.1 VOL% (42.0-52.0); Immature Granulocytes % 0.5 %; Immature Granulocytes Absolute 0.06 #; Lymphocytes # 1.5 10*3/uL (1.4-4.0); Lymphocytes % 13.3 % (21.2-54.2); Mean Corpuscular HGB Conc 33.2 GM/DL (32-36); Mean Corpuscular Volume 104.7 FL (87-102); Mean Platelet Volume 10.1 FL (9.6-12.0); Monocytes # 0.5 10*3/uL (0.11-0.8); Monocytes % 4.3 % (1.7-12.7); Neutrophils % 77.4 % (38.7-73.9); Platelet Count 273 T/CUMM (130-400); Red Blood Count 3.16 MC/CUMM (3.8-5.5)
[2022-02-27 04:16] LABS: Allen Test Positive
[2022-02-27 04:17] LABS: Alanine Aminotransferase 20 U/L (16-61); Albumin 3.5 G/DL (3.4-5.0); Alkaline Phosphatase 96 U/L (45-117); Aspartate Amino Transferase 13 U/L (0-37); Bilirubin,Total < 0.39 MG/DL (0.20-1.00); Blood Urea Nitrogen 56 MG/DL (7-18); Carbon Dioxide 27 MMOL/L (21-32); Chloride 101 MMOL/L (98-107); Glucose 240 MG/DL (74-106); Osmolality,Calculated 302.4 MOS/KG (273-304); Sodium 140 MMOL/L (136-145); Total Protein 7.1 G/DL (6.4-8.2)
[2022-02-27 04:26] LABS: ABG Base Excess -0.6 MMOL/L (-2.5-2.5); ABG HCO3 23.8 MMOL/L (20-26); ABG Oxygen Saturation 92.4 % (95-100); ABG PCO2 49.1 MM HG (35-48); ABG PH 7.329 (7.35-7.45); ABG PO2 72.7 MM HG (80-95); ABG TCO2 23.6 MMOL/L (23-27)
[2022-02-27] MEDS ORDERED: ACETAMINOPHEN 325 MG TABLET PO PRN (05:06)
[2022-02-27] MEDS ORDERED: ALUMINUM/MAGNES/SIMETH MAX STR 30 ML UDCUP PO PRN (05:06)
[2022-02-27] MEDS ORDERED: ONDANSETRON 4 MG/2 ML VIAL IV PRN (05:06)
[2022-02-27] MEDS ORDERED: hydrALAZINE 20 MG/1 ML VIAL IV PRN (05:06)
[2022-02-27] MEDS ORDERED: GLUCAGON 1 MG VIAL IM PRN (05:26)
[2022-02-27] MEDS ORDERED: DEXTROSE 10% 250 ML BAG IV PRN (05:27)
[2022-02-27] MEDS ORDERED: CALCIUM CARBONATE CHEW 500 MG TABLET PO PRN (06:39)
[2022-02-27] MEDS ORDERED: diphenhydrAMINE CAP 25 MG CAPSULE PO PRN (06:39)
[2022-02-27] MEDS: ALBUTEROL/IPRATROPIUM 3 ML NEB RESP TX SCH ×3 (07:24→19:34)
[2022-02-27] MEDS ORDERED: HEPARIN 5,000 UNIT/1 ML VIAL SUBCUT SCH (09:00)
[2022-02-27] MEDS: INSULIN REGULAR 100 UNIT/ML SUBCUT SCH ×4 (09:38→22:41)
[2022-02-27] MEDS ORDERED: NITROGLYCERIN SL 0.4 MG TABLET SL ONE (10:02)
[2022-02-27] MEDS ORDERED: ASPIRIN CHEW 81 MG TABLET PO ONE (10:05)
[2022-02-27] MEDS ORDERED: NITROGLYCERIN SL 0.4 MG TABLET SL PRN (10:05)
[2022-02-27] MEDS: amLODIPine 5 MG TABLET PO SCH (10:12)
[2022-02-27] MEDS: ASPIRIN CHEW 81 MG TABLET PO SCH (10:13)
[2022-02-27] MEDS: PANTOPRAZOLE 40 MG TABLET PO SCH (10:13)
[2022-02-27] MEDS: DOCUSATE SODIUM 100 MG CAPSULE PO SCH ×2 (10:13→22:41)
[2022-02-27] MEDS ORDERED: ENOXAPARIN 100 MG/ML SYRINGE SUBCUT SCH (10:30)
[2022-02-27] MEDS ORDERED: HEPARIN 5,000 UNIT/1 ML VIAL IV ONE (11:00)
[2022-02-27] MEDS ORDERED: HEPARIN DRIP 25,000 UNITS/500 ML PREMIX IV SCH (11:00)
[2022-02-27 12:30] LABS: Risk Ratio 3.9; VLDL Cholesterol 17.8 MG/DL
[2022-02-27 13:06] LABS: Folate 14.53 NG/ML (5.38-24.0)
[2022-02-27] MEDS ORDERED: HEPARIN 10,000 UNIT/10 ML VIAL IV SCH (14:30)
[2022-02-27] MEDS: NITROGLYCERIN 2% OINT 1 INCH/GM PACK TOP SCH ×2 (14:42→17:34)
[2022-02-27] MEDS: carvediloL 12.5 MG TABLET PO SCH ×2 (14:42→17:23)
[2022-02-27] MEDS: hydrALAZINE 25 MG TABLET PO SCH ×2 (17:56→22:41)
[2022-02-27] MEDS: ROSUVASTATIN 20 MG TABLET PO SCH (22:41)
[2022-02-28] MEDS: ALBUTEROL/IPRATROPIUM 3 ML NEB RESP TX SCH ×4 (00:08→19:20)
[2022-02-28] MEDS: NITROGLYCERIN 2% OINT 1 INCH/GM PACK TOP SCH ×4 (00:49→17:41)
[2022-02-28 05:06] LABS: Basophils % 0.3 % (0.0-0.8); Eosinophils % 0.1 % (0.00-10.9); Hematocrit 28.3 VOL% (42.0-52.0); Hemoglobin 9.4 GM/DL (14.0-18.0); Immature Granulocytes % 0.3 %; Immature Granulocytes Absolute 0.03 #; Lymphocytes # 1.1 10*3/uL (1.4-4.0); Lymphocytes % 12.3 % (21.2-54.2); Mean Corpuscular HGB Conc 33.2 GM/DL (32-36); Mean Platelet Volume 10.1 FL (9.6-12.0); Monocytes # 0.7 10*3/uL (0.11-0.8); Monocytes % 8.4 % (1.7-12.7); Neutrophils % 78.6 % (38.7-73.9); Platelet Count 243 T/CUMM (130-400); Red Blood Count 2.67 MC/CUMM (3.8-5.5); Red Cell Distribution Width 14.2 % (9.3-17.3); White Blood Count 8.7 T/CUMM (4-12)
[2022-02-28 05:25] LABS: Calcium 8.6 MG/DL (8.5-10.1); Osmolality,Calculated 291.8 MOS/KG (273-304); Potassium 4.7 MMOL/L (3.5-5.1)
[2022-02-28] MEDS ORDERED: VERAPAMIL 5 MG/2 ML VIAL ONE (07:17)
[2022-02-28] MEDS ORDERED: NITROGLYCERIN DRIP 50 MG/250 ML BOTTLE IV ONE (07:17)
[2022-02-28] MEDS ORDERED: HEPARIN/NACL 0.9% 2 UNITS/ML 2,000 UNIT/1,000 ML BAG IV ONE (07:17)
[2022-02-28] MEDS: INSULIN REGULAR 100 UNIT/ML SUBCUT SCH ×4 (08:25→21:08)
[2022-02-28] MEDS: ASPIRIN CHEW 81 MG TABLET PO SCH (09:30)
[2022-02-28] MEDS: amLODIPine 5 MG TABLET PO SCH (09:30)
[2022-02-28] MEDS: PANTOPRAZOLE 40 MG TABLET PO SCH (09:31)
[2022-02-28] MEDS: carvediloL 12.5 MG TABLET PO SCH ×2 (09:31→16:07)
[2022-02-28] MEDS: DOCUSATE SODIUM 100 MG CAPSULE PO SCH ×2 (09:31→21:07)
[2022-02-28] MEDS: hydrALAZINE 25 MG TABLET PO SCH ×2 (09:31→21:07)
[2022-02-28] MEDS ORDERED: diphenhydrAMINE CAP 25 MG CAPSULE PO ONE (10:00)
[2022-02-28] MEDS ORDERED: DIAZEPAM 5 MG TABLET PO ONE (10:00)
[2022-02-28] MEDS ORDERED: MIDAZOLAM 2 MG/2 ML VIAL ONE (10:09)
[2022-02-28] MEDS ORDERED: HYDROmorphone 1 MG/1 ML SYRINGE ONE (10:09)
[2022-02-28] MEDS ORDERED: ENOXAPARIN 30 MG/0.3 ML SYRINGE ONE (10:23)
[2022-02-28] MEDS ORDERED: TICAGRELOR 90 MG TABLET ONE (10:54)
[2022-02-28] MEDS ORDERED: DEXTROSE 50% 25 GM/50 ML VIAL IV PRN (10:55)
[2022-02-28] MEDS: TICAGRELOR 90 MG TABLET PO SCH (21:07)
[2022-02-28] MEDS: ROSUVASTATIN 20 MG TABLET PO SCH (21:08)
[2022-03-01] MEDS: ALBUTEROL/IPRATROPIUM 3 ML NEB RESP TX SCH ×4 (00:20→19:24)
[2022-03-01] MEDS: NITROGLYCERIN 2% OINT 1 INCH/GM PACK TOP SCH ×2 (00:54→06:05)
[2022-03-01 05:11] LABS: Basophils # 0.1 10*3/uL (0.0-0.2); Basophils % 0.6 % (0.0-0.8); Eosinophils # 0.3 10*3/uL (0.0-0.87); Eosinophils % 3.3 % (0.00-10.9); Hematocrit 31.3 VOL% (42.0-52.0); Hemoglobin 10.1 GM/DL (14.0-18.0); Immature Granulocytes % 0.6 %; Immature Granulocytes Absolute 0.05 #; Lymphocytes % 22.7 % (21.2-54.2); Mean Corpuscular HGB Conc 32.3 GM/DL (32-36); Mean Corpuscular Volume 107.2 FL (87-102); Mean Platelet Volume 10.3 FL (9.6-12.0); Monocytes # 0.8 10*3/uL (0.11-0.8); Monocytes % 9.3 % (1.7-12.7); Neutrophils % 63.5 % (38.7-73.9); Platelet Count 245 T/CUMM (130-400); Red Blood Count 2.92 MC/CUMM (3.8-5.5); Red Cell Distribution Width 14.3 % (9.3-17.3); White Blood Count 8.7 T/CUMM (4-12)
[2022-03-01 05:27] LABS: Calcium 8.8 MG/DL (8.5-10.1); Osmolality,Calculated 297.1 MOS/KG (273-304)
[2022-03-01 05:30] LABS: Potassium 6.6 MMOL/L (3.5-5.1)
[2022-03-01] MEDS ORDERED: SODIUM POLYSTYRENE SULFATE 15 GM/60 ML BOTTLE PO ONE (05:40)
[2022-03-01] MEDS: INSULIN REGULAR 100 UNIT/ML SUBCUT SCH ×4 (07:49→21:31)
[2022-03-01] MEDS: ASPIRIN CHEW 81 MG TABLET PO SCH (12:04)
[2022-03-01] MEDS: ISOSORBIDE MONONITRATE 30 MG TABLET PO SCH (12:04)
[2022-03-01] MEDS: amLODIPine 5 MG TABLET PO SCH (12:04)
[2022-03-01] MEDS: TICAGRELOR 90 MG TABLET PO SCH ×2 (12:05→21:30)
[2022-03-01] MEDS: hydrALAZINE 25 MG TABLET PO SCH ×2 (12:05→21:30)
[2022-03-01] MEDS: DOCUSATE SODIUM 100 MG CAPSULE PO SCH ×2 (12:05→21:30)
[2022-03-01] MEDS: PANTOPRAZOLE 40 MG TABLET PO SCH (12:05)
[2022-03-01] MEDS: carvediloL 12.5 MG TABLET PO SCH (12:08)
[2022-03-01 13:26] LABS: Calcium 8.3 MG/DL (8.5-10.1); Potassium 4.3 MMOL/L (3.5-5.1)
[2022-03-01] MEDS: carvediloL 25 MG TABLET PO SCH (16:19)
[2022-03-01] MEDS: ROSUVASTATIN 20 MG TABLET PO SCH (21:30)
[2022-03-01] MEDS: PIPERACILLIN/TAZOBACTAM 3.375 MG in SODIUM CHLORIDE 0.9% 100 ML IV SCH (21:38)
[2022-03-02] MEDS: ALBUTEROL/IPRATROPIUM 3 ML NEB RESP TX SCH ×4 (00:12→19:22)
[2022-03-02 05:28] LABS: Basophils # 0.1 10*3/uL (0.0-0.2); Basophils % 0.7 % (0.0-0.8); Eosinophils # 0.4 10*3/uL (0.0-0.87); Eosinophils % 5.5 % (0.00-10.9); Hematocrit 29.6 VOL% (42.0-52.0); Hemoglobin 9.6 GM/DL (14.0-18.0); Immature Granulocytes % 0.4 %; Immature Granulocytes Absolute 0.03 #; Lymphocytes # 1.2 10*3/uL (1.4-4.0); Mean Corpuscular HGB Conc 32.4 GM/DL (32-36); Mean Corpuscular Volume 106.5 FL (87-102); Mean Platelet Volume 10.4 FL (9.6-12.0); Monocytes # 0.8 10*3/uL (0.11-0.8); Monocytes % 11.2 % (1.7-12.7); Neutrophils % 64.2 % (38.7-73.9); Platelet Count 230 T/CUMM (130-400); Red Blood Count 2.78 MC/CUMM (3.8-5.5); Red Cell Distribution Width 13.7 % (9.3-17.3); White Blood Count 6.7 T/CUMM (4-12)
[2022-03-02 05:50] LABS: Calcium 8.3 MG/DL (8.5-10.1); Osmolality,Calculated 290.5 MOS/KG (273-304); Potassium 4.3 MMOL/L (3.5-5.1)
[2022-03-02] MEDS: INSULIN REGULAR 100 UNIT/ML SUBCUT SCH ×4 (09:25→22:03)
[2022-03-02] MEDS: TICAGRELOR 90 MG TABLET PO SCH ×2 (09:25→22:02)
[2022-03-02] MEDS: DOCUSATE SODIUM 100 MG CAPSULE PO SCH ×2 (09:25→22:03)
[2022-03-02] MEDS: carvediloL 25 MG TABLET PO SCH ×2 (09:25→16:09)
[2022-03-02] MEDS: amLODIPine 5 MG TABLET PO SCH (09:25)
[2022-03-02] MEDS: hydrALAZINE 25 MG TABLET PO SCH ×2 (09:25→22:02)
[2022-03-02] MEDS: ISOSORBIDE MONONITRATE 30 MG TABLET PO SCH (09:25)
[2022-03-02] MEDS: PANTOPRAZOLE 40 MG TABLET PO SCH (09:25)
[2022-03-02] MEDS: ASPIRIN CHEW 81 MG TABLET PO SCH (09:25)
[2022-03-02] MEDS: PIPERACILLIN/TAZOBACTAM 3.375 MG in SODIUM CHLORIDE 0.9% 100 ML IV SCH ×2 (09:26→22:08)
[2022-03-02] MEDS: ROSUVASTATIN 20 MG TABLET PO SCH (22:02)
[2022-03-03] MEDS: ALBUTEROL/IPRATROPIUM 3 ML NEB RESP TX SCH ×3 (01:41→13:10)
[2022-03-03] MEDS ORDERED: PIPERACILLIN/TAZOBACTAM 3,375 MG in SODIUM CHLORIDE 0.9% 100 ML IV SCH (09:00)
[2022-03-03] MEDS: INSULIN REGULAR 100 UNIT/ML SUBCUT SCH ×3 (10:32→16:08)
[2022-03-03] MEDS: hydrALAZINE 25 MG TABLET PO SCH (12:09)
[2022-03-03] MEDS: DOCUSATE SODIUM 100 MG CAPSULE PO SCH (12:09)
[2022-03-03] MEDS: PANTOPRAZOLE 40 MG TABLET PO SCH (12:10)
[2022-03-03] MEDS: ASPIRIN CHEW 81 MG TABLET PO SCH (12:10)
[2022-03-03] MEDS: amLODIPine 5 MG TABLET PO SCH (12:10)
[2022-03-03] MEDS: carvediloL 25 MG TABLET PO SCH (12:11)
[2022-03-03] MEDS: ISOSORBIDE MONONITRATE 30 MG TABLET PO SCH (12:11)
[2022-03-03] MEDS: TICAGRELOR 90 MG TABLET PO SCH (12:11)
[2022-03-03 13:41] VITALS: BP 187/83
== END 2022-03-03 17:24 | disposition home or self-care (01) | DRG 246 ==
LOC: SUATTDRO → EDUNIT# → N.ED 03:25 → N.EDINP 05:02 → SUATTDRO 05:02 → N.5E 07:57 → N.TELES 11:22
PROVIDERS: ADMIT Internal Medicine; ATTEND Internal Medicine